=== PATIENT | female | born 1990 | race Caucasian/White ===

== ENCOUNTER 2017-06-28 15:32 | Emergency (ER) | payer SELFPAY ==
[~2017-06-28] VITALS: Ht 160 cm; Wt 58.0 kg
[~2017-06-28 15:32] MED LIST: BUPR-197 PO; BUPR100CR PO; IBUP600 PO; PERI8.6T PO; PREN0.01 PO
[2017-06-28 15:34] VITALS: BP 116/65; PULSE 63; RESP 16; TEMP 97.8; O2SAT 99
--- NOTE | 2017-06-28 16:25 | PD ---
HPI Chief Complaint: Injury Time Seen by Provider: 15:47 Travel History International Travel<30 days: No Contact w/Intl Traveler<30days: No Traveled to known affect area: No History of Present Illness HPI 26 old female here with right medial foot pain 1 week. She reports she injured the foot while doing front flips. She has had pain with weightbearing since. Denies paresthesia or weakness in the extremity. Symptom severity moderate. Aggravated by walking relieved with rest. PFSH Past Medical History Hx Anticoagulant Therapy: No ADHD: Yes Asthma: Yes Bipolar Disorder: Yes Weight (Kg): 3 Anxiety: No Depression: Yes Cancer: No Cardiovascular Problems: No Diabetes: No Diminished Hearing: No Endocrine: No Gastrointestinal Disorders: Yes Genitourinary: No Headaches: Yes Immune Disorder: No Implanted Vascular Access Dvce: No Musculoskeletal: No Neurologic: Yes Psychiatric: Yes (BIPOLAR AND ADHD) Reproductive: No Respiratory: Yes Immunizations Current: Yes Migraines: Yes (SEVERE HEADS APPROX ONCE EVERY TWO WEEKS) Seizures: No Thyroid Disease: No Ulcer: No Influenza Vaccination: Yes PNEUMOCCOCAL Vaccine (Year): 3 ?: Not LMP: about 1 mo ago Menopausal: No : 0 Past Surgical History Appendectomy: No Section: No Cholecystectomy: No Pacemaker: No Other Surgery: Yes Social History Alcohol Use: No Tobacco Use: Yes (1ppd) Substance Use: Yes (MARIJUANA) Allergies-Medications (Allergen,Severity, Reaction): Coded Allergies: No Known Allergies (Verified Adverse Reaction, Unknown, 06/28/17) Reported Meds & Prescriptions Reported Meds & Active Scripts Active Review of Systems Except as stated in HPI: all other systems reviewed are Neg Physical Exam Narrative GENERAL: Alert female with no distress SKIN: Warm and dry. HEAD: Normocephalic. EYES: No scleral icterus. No injection or drainage. NECK: Supple, trachea midline. MUSCULOSKELETAL: No cyanosis, or edema. Right foot: Tenderness over the medial aspect. No deformity. 2+ distal pulses. Brisk cap refill. Data Data Last Documented VS Vital Signs Date Time Temp Pulse Resp B/P (MAP) Pulse Ox O2 Delivery O2 Flow Rate FiO2 06/28/17 15:40 Room Air 06/28/17 15:34 97.8 63 16 116/65 (82) 99 Orders Orders Foot, Complete ([id number]) (06/28/17 ) [facility] Medical Decision Making Medical Screen Exam Complete: Yes Emergency Medical Condition: Yes Differential Diagnosis Sprain, contusion, fracture Narrative Course 26 -year-old female with right foot pain. Extremities neurovascular intact. X- rays negative for fracture. Patient be treated for midfoot sprain Diagnosis Primary Impression: Foot sprain Qualified Codes: S93.601A - Unspecified sprain of right foot, initial encounter Referrals: [facility] Additional Instructions: Ice and elevate the extremity. Take [id number] Tylenol or ibuprofen as needed for pain. Disposition: 01 DISCHARGE HOME Condition: Stable Sonya Cabrera Jun 28, 2017 16:25
--- NOTE | 2017-06-28 16:30 | RADRPT ---
EXAM DATE/TIME: 06/28/2017 16:00 [place] COMPARISON: No previous studies available for comparison. INDICATIONS : Left foot pain after doing flips MEDICAL HISTORY : None. SURGICAL HISTORY : None. ENCOUNTER: Initial ACUITY: 4 - 6 days PAIN SCORE: 8/10 LOCATION: Left foot FINDINGS: Three view examination of the left foot demonstrates no soft tissue swelling, dislocation, or fractur e. The tarsal bones appear intact. The interphalangeal and metatarsophalangeal joints are intact. The calcaneus is intact. Bony mineralization is normal. CONCLUSION: Unremarkable examination. Donnell Wynn MD on June 28, 2017 at 16:28 Board Certified Radiologist. This report was verified electronically.
== END 2017-06-28 16:58 | disposition home or self-care (01) ==
LOC: PHEFT 15:32
DX: M79.671 Pain in right foot (principal); J45.909 Unspecified asthma, uncomplicated; F12.90 Cannabis use, unspecified, uncomplicated; Z72.0 Tobacco use
CPT/HCPCS: 73630; 99283

== ENCOUNTER 2018-04-03 10:14 | Inpatient (IN) ==
[2018-04-03] MEDS ORDERED: Morphine Inj 4 MG/ML Vial IV.PUSH ONE ×2 (10:30→12:13)
[2018-04-03] MEDS ORDERED: Sod Chloride 0.9% Inj 1,000 ML IV.SIG ONE (10:33)
--- NOTE | 2018-04-03 10:44 | ED ---
HPI General Chief complaint: Extremity Injury, Lower Stated complaint: knee complaint Time Seen by Provider: 04/03/18 10:25 Source: patient, RN notes reviewed and old records reviewed Mode of arrival: wheelchair History of Present Illness HPI narrative: 27yF presenting with right knee infection. The patient states that a week and a half ago she had a "staph infection on my right thigh" which she drained herself and did not receive antibiotics; approximately 6 days ago, she began to have swelling, redness, and pain to her right knee. She was seen in the ED at [facility], where she had an arthrocentesis performed and was told that she had a septic knee. She was given a dose of IV antibiotics but did not wish to stay in the hospital, so she signed out against medical advice. She was not seen by or followed up with an orthopedist. She reports that the pain was initially better, but yesterday became significantly worse, her knee is now more swollen, and she is unable to flex or extend the joint. Denies fever but admits to chills, denies hip or ankle pain, denies trauma, puncture wounds to skin, or IVDA. Related Data Home Medications Medication Instructions Recorded Confirmed No Known Home Medications 04/03/18 04/03/18 Allergies Allergy/AdvReac Type Severity Reaction Status Date / Time No Known Allergies Allergy Verified 04/03/18 11:15 Review of Systems ROS: all other systems reviewed are negative PMFSH History History Provided By: Patient Medical History Medical History Patient denies medical problems (Acute) Surgical History Surgical History History of facial surgery (Acute) Social History Social History Substance History: No History of Abuse Second Hand Smoke Exposure: Yes Smoking Status: Heavy tobacco smoker Tobacco Type: Cigarettes How Often Do You Have a Drink Containing Alcohol: Never Recent Travel in [facility] within the Last 8 Weeks: No Recent Out of Country Travel within the Last 8 Weeks: No Exam Const Other: Tearful, moderate painful distress [place] Head: normocephalic and atraumatic Eyes General: appearance normal, both eyes and all related structures Pupils: PERRL Chest Chest: normal inspection of the chest Resp Effort & Inspection: normal respiratory effort Auscultation: no rhonchi and no wheezes Cardio Rate: tachycardic Rhythm: regular rhythm GI Inspection: non-distended Palpation: soft and nontender Neuro General: alert, awake, oriented x3 and no focal motor deficits Extrem Other: Right knee is moderately swollen, erythematous, warm, tender to any touch No lymphangitic streaking Unable to actively or passively flex/ extend knee Psych Affect: normal affect Procedures Joint Aspiration/Injection Joint Asp./Inject. 1: Time Out Performed: Yes Side of Body: right Joint Aspirated: knee Ultrasound Guidance: No Skin Prep: sterile prep and drape Local Anesthesia Used: bupivacaine 0.5% Amount of anesthesia used (mL): 10 Needle Size Used: 18G Fluid Obtained: purulent Total fluid obtained (mL): 60 Patient Tolerated Procedure: well and no complications Course Consultations Consultation #1: Case discussed with ortho PA working w Dr. Cohen; agrees with IV antibiotics and recommends keeping the patient NPO after midnight for planned OR washout in AM. Time: 14:42 Initial Documented Vital Signs Temperature 98.7 F 04/03/18 10:16 Pulse Rate 113 H 04/03/18 10:16 Respiratory Rate 18 04/03/18 10:16 Blood Pressure 120/66 04/03/18 10:16 Pulse Oximetry 99 04/03/18 10:16 Last Documented Vital Signs Temperature 100.4 F H 04/03/18 14:25 Pulse Rate 82 04/03/18 14:25 Respiratory Rate 20 04/03/18 14:25 Blood Pressure 104/58 L 04/03/18 14:25 Pulse Oximetry 97 04/03/18 14:25 Medical Decision Making [facility] Narrative Medical decision making narrative: Assessment: 27yF resenting with right knee infection, likely septic joint Plan: Pain control, IV fluids Labs, including blood cultures, lactate, ESR/ CRP X-ray right knee [facility] contacted to fax over previous records/ micro reports Will d/w orthopedics Addendum: This patient cannot go home as she has a septic right knee. She will need IV antibiotics and operative wash-out. Case discussed with Dr. Cody of [facility]. Medical Screen Exam Complete: Yes Emergency Medical Condition: Yes Differential Diagnosis Differential Diagnosis: Differential diagnosis includes, but is not limited to: septic arthritis, abscess, bursitis, hemarthrosis, fracture Medical Records Medical records reviewed: Yes I reviewed the patient's medical records. Records from [facility] show that the patient's synovial analysis was: Cloudy Yellow No crystals seen WBCs 437/mm3 Polys 92.7% Monos 7.3% RBCs <1000/mm3 No micro reports were sent Sed rate 87 mm/hr CRP 64.6 mg/L Urine drug screen positive for amphetamines, benzodiazepines, cocaine, opiates, and cannabinoids The patient was given a 1 time dose of 2 gm cefepime IV, no PO antibiotics Lab Data Lab results reviewed: Yes I reviewed the patient's lab results. Result diagrams: 04/03/18 11:05 04/03/18 11:05 POC Results POC Urine Results Negative Lab Results 04/03/18 04/03/18 04/03/18 Range/Units 11:05 11:05 11:05 WBC 9.2 (4.0-11.0) th/mm3 RBC 4.12 (4.00-5.30) mil/mm3 Hgb 11.7 (11.6-15.3) gm/dL Hct 35.6 (35.0-46.0) % MCV 86.2 (80.0-100.0) fL MCH 28.4 (27.0-34.0) pg MCHC 33.0 (32.0-36.0) % RDW 14.4 (11.6-17.2) % Plt Count 275 (150-450) th/mm3 MPV 7.4 (7.0-11.0) fL Neut % (Auto) 68.6 (16.0-70.0) % Lymph % (Auto) 19.5 (9.0-44.0) % [place] % (Auto) 11.2 H (0.0-8.0) % Eos % (Auto) 0.4 (0.0-4.0) % Baso % (Auto) 0.3 (0.0-2.0) % Neut # (Auto) 6.3 (1.8-7.7) th/mm3 Lymph # (Auto) 1.8 (1.0-4.8) th/mm3 [place] # (Auto) 1.0 H (0.0-0.9) th/mm3 Eos # (Auto) 0.0 (0.0-0.4) th/mm3 Baso # (Auto) 0.0 (0.0-0.2) th/mm3 WBC Differential . Differential Comment Auto diff final ESR 66 H (0-20) mm/hr Sodium 137 (136-145) meq/L Potassium 4.3 (3.5-5.1) meq/L Chloride 102 (98-107) meq/L Carbon Dioxide 26.6 (21.0-32.0) meq/L Anion Gap 8 (5-15) meq/L BUN 14 (7-18) mg/dL Creatinine 0.62 (0.50-1.00) mg/dL Estimated GFR Greater than 89 (>89) mL/min Random Glucose 99 (74-106) mg/dL Lactic Acid (0.4-2.0) mmol/L Calcium 8.9 (8.5-10.1) mg/dL C-Reactive Protein 18.50 H (0.00-0.30) mg/dL 04/03/18 Range/Units 11:15 WBC (4.0-11.0) th/mm3 RBC (4.00-5.30) mil/mm3 Hgb (11.6-15.3) gm/dL Hct (35.0-46.0) % MCV (80.0-100.0) fL MCH (27.0-34.0) pg MCHC (32.0-36.0) % RDW (11.6-17.2) % Plt Count (150-450) th/mm3 MPV (7.0-11.0) fL Neut % (Auto) (16.0-70.0) % Lymph % (Auto) (9.0-44.0) % [place] % (Auto) (0.0-8.0) % Eos % (Auto) (0.0-4.0) % Baso % (Auto) (0.0-2.0) % Neut # (Auto) (1.8-7.7) th/mm3 Lymph # (Auto) (1.0-4.8) th/mm3 [place] # (Auto) (0.0-0.9) th/mm3 Eos # (Auto) (0.0-0.4) th/mm3 Baso # (Auto) (0.0-0.2) th/mm3 WBC Differential Differential Comment ESR (0-20) mm/hr Sodium (136-145) meq/L Potassium (3.5-5.1) meq/L Chloride (98-107) meq/L Carbon Dioxide (21.0-32.0) meq/L Anion Gap (5-15) meq/L BUN (7-18) mg/dL Creatinine (0.50-1.00) mg/dL Estimated GFR (>89) mL/min Random Glucose (74-106) mg/dL Lactic Acid 1.3 (0.4-2.0) mmol/L Calcium (8.5-10.1) mg/dL C-Reactive Protein (0.00-0.30) mg/dL Imaging Data Radiologist's impression: Knee X-Ray 04/03/18 10:30 CONCLUSION: Knee joint effusion. Discharge Plan Discharge Disposition Patient Disposition: 30 Still Patient Discharge Condition Condition: Good Discharge Details Diagnosis: Septic arthritis of knee, right Physicians Team ED Provider: Kairne Dent Primary Care Provider: Primary Care CorkyiFelicia Rxs /Orders / Referrals /Forms Prescriptions: No Action No Known Home Medications RF: 0 Discharge Interventions Interventions: Vital Signs Last Done: 04/03/18 14:25 Status ED Status: With Doctor
--- NOTE | 2018-04-03 11:08 | XR ---
EXAM DATE: 04/03/2018 11:05 AM EDT AGE/SEX: 27 years / Female INDICATIONS: Swelling in right knee, right knee pain and swelling more medial. CLINICAL DATA: This is the patient's initial encounter. Patient reports that signs and symptoms have been present for 3 days and indicates a pain score of 10/10. MEDICAL/SURGICAL HISTORY: None. None. COMPARISON: No prior exams available for comparison. FINDINGS: No fracture or dislocation. Normal bone density. Large knee joint effusion. CONCLUSION: Knee joint effusion. Electronically signed by: Blaze Peguero MD 04/03/2018 11:06 AM EDT
[2018-04-03 11:33] LABS: Baso % (Auto) 0.3 % (0.0-2.0); Eos % (Auto) 0.4 % (0.0-4.0); Hematocrit 35.6 % (35.0-46.0); Hemoglobin 11.7 gm/dL (11.6-15.3); Lymph # (Auto) 1.8 th/mm3 (1.0-4.8); Lymph % (Auto) 19.5 % (9.0-44.0); Mean Corpuscular Hemoglobin 28.4 pg (27.0-34.0); Mean Corpuscular Volume 86.2 fL (80.0-100.0); Mean Platelet Volume 7.4 fL (7.0-11.0); Mono % (Auto) 11.2 % (0.0-8.0); Neut # (Auto) 6.3 th/mm3 (1.8-7.7); Neut % (Auto) 68.6 % (16.0-70.0); Platelet Count 275 th/mm3 (150-450); Red Blood Count 4.12 mil/mm3 (4.00-5.30); Red Cell Distribution Width 14.4 % (11.6-17.2); White Blood Count 9.2 th/mm3 (4.0-11.0)
[2018-04-03 11:45] LABS: Anion Gap 8 meq/L (5-15); Blood Urea Nitrogen 14 mg/dL (7-18); Calcium 8.9 mg/dL (8.5-10.1); Carbon Dioxide 26.6 meq/L (21.0-32.0); Chloride 102 meq/L (98-107); Glomerular Filtration Rate Greater Than 89 mL/min (>89); Glucose,Random 99 mg/dL (74-106); Potassium 4.3 meq/L (3.5-5.1); Sodium 137 meq/L (136-145)
[2018-04-03] MEDS ORDERED: Bupivacaine PF 0.5% Inj 10 ML Vial INFILTRATN ONE (11:59)
[2018-04-03] MEDS ORDERED: Bupivacaine 0.5% Inj 50 ML MDV Vial INFILTRATN ONE (12:30)
[2018-04-03] MEDS ORDERED: Vancomycin Inj 1 GM/200 ML PIGGYBACK IV.SIG ONE (13:37)
[2018-04-03] MEDS ORDERED: Vancomycin Inj 1,000 MG in Sodium Chlor 0.9% Inj 250 ML IV.SIG ONE (15:00)
[2018-04-03] MEDS ORDERED: Acetaminophen 325 MG Tablet PO ONE (15:06)
[2018-04-03] MEDS ORDERED: Acetaminophen 325 MG Tablet PO PRN (15:40)
[2018-04-03] MEDS ORDERED: Bisacodyl 10 MG Supp RECTAL PRN (15:40)
[2018-04-03] MEDS ORDERED: Vancomycin Consult Pharmacy OTHER PRN (15:43)
[2018-04-03] MEDS ORDERED: Naloxone Inj 0.4 MG/ML Vial IV.PUSH PRN (15:45)
--- NOTE | 2018-04-03 15:55 | P.HP ---
History of Present Illness Primary Care Physician: No Primary Care Physician History of Present Illness: 27-year-old female for past history of IVDU, presented to the ED for evaluation of right knee pain rated over 10 in intensity which is worse with activity. Patient report questionable staph infection on her right thigh about 10 days ago, which according to her she was able to drainage. However about a week ago she noticed significant swelling and redness of the right knee and went to a local emergency departments where patient had performed arthrocentesis and was given a diagnosis of septic knee for which she was treated with IV antibiotics. However, patient left AMA without any antibiotics and was advised to follow with outpatient orthopedic surgery. She was unable to do so, and the pain got worse with the knee significant swollen. Patient denies any trauma to her right knee or any insect bite. She denies any subjective fever. She has no chest pain or shortness of breath. . - Diagnosis (1) Sepsis (2) Septic arthritis of knee, right (3) Tobacco abuse (4) Polysubstance abuse Inpatient Certification: I certify that the inpatient services were ordered in accordance with Medicare regulations governing the order. This includes certification that hospital inpatient services are reasonable and necessary and in the case of services not specified as inpatient-only under 42 CFR 419.22(n), that they are appropriately provided as inpatient services in accordance to with the 2-midnight benchmark under 43 CFR 412.3(e) Estimated Total Length of Stay (Days): 2 Plans for Post Hospital Care: Not yet determined Review of Systems All other systems reviewed negative except as stated in HPI [facility] - History History Provided By: Patient - Medical History Medical History: Medical History (Last Updated 04/03/18 @ 11:12 by Elidia Ross) Patient denies medical problems - Surgical History Surgical History: Surgical History (Last Updated 04/03/18 @ 11:12 by Elidia Ross) History of facial surgery - Family History Family History: Family History (Last Updated 04/03/18 @ 15:50 by Jermaine Cody MD) Other Heart disease - Tobacco History Second Hand Smoke Exposure: Yes Tobacco Use In Past 30 Days: Yes Smoking Status: Heavy tobacco smoker Tobacco Type: Cigarettes - Alcohol History How Often Do You Have a Drink Containing Alcohol: Never - Substance Use History Substance History: No History of Abuse - Travel History Recent Travel in the [facility] Within the Last 8 Weeks: No Recent Travel Out of the Country Within the Last 8 Weeks: No - Immunization History Tetanus Immunization: Unsure Hx Influenza Vaccine This Season: No Medications and Allergies Active Medications: Active Medications Acetaminophen (Tylenol) 650 mg PO Q4H PRN PRN Reason: Temp > 100.4 Hydrocodone Bitart/Acetaminophen (Central 5/325) 1 tab PO Q4H PRN PRN Reason: PAIN SCALE 3 TO 5 Hydrocodone Bitart/Acetaminophen (Central 7.5/325) 1 tab PO Q4H PRN PRN Reason: PAIN SCALE 6 TO 10 Al Hydroxide/Mg Hydroxide (Milk Of Magnesia Liq) 30 ml PO Q12H PRN PRN Reason: Mild Constipation Bisacodyl (Dulcolax Supp) 10 mg RECTAL DAILY PRN PRN Reason: SEVERE CONSITIPATION Vancomycin HCl 1,000 mg/ (Sodium Chloride) 250 mls @ 250 mls/hr IV.SIG ONCE ONE Stop: 04/03/18 15:59 Last Admin: 04/03/18 15:38 Dose: 250 mls/hr Ceftriaxone Sodium 1,000 mg/ (Sodium Chloride) 100 mls @ 200 mls/hr IV.SIG Q24H STEFANIE Vancomycin HCl 1,250 mg/ (Sodium Chloride) 262.5 mls @ 250 mls/hr IV.SIG Q24H STEFANIE Lactobacillus Acidophilus (Lactinex) 1 tab PO BID [facility] Lactulose (Lactulose Liq) 30 ml PO DAILY PRN PRN Reason: SEVERE CONSITIPATION Morphine Sulfate (Morphine Inj) 2 mg IV.PUSH Q4H PRN PRN Reason: BREAKTHROUGH PAIN Naloxone HCl (Narcan Inj) 0.4 mg IV.PUSH UNSCH PRN PRN Reason: SEE LABEL COMMENTS Nicotine (Habitrol 21 Mg Patch.24 Hr) 1 patch T-DERMAL DAILY [facility] Ondansetron HCl (Zofran Inj) 4 mg IV.PUSH Q6H PRN PRN Reason: NAUSEA OR VOMITING Patch Removal (Remove Old Patch) 1 each T-DERMAL HS [facility] Pharmacy Profile Note (Vancomycin Consult Pharmacy) 1 each OTHER UNSCH PRN PRN Reason: Pharmacy to dose Senna/Docusate Sodium (Anabel-Colace) 1 tab PO BID [facility] Sennosides (Senokot) 17.2 mg PO Q12H PRN PRN Reason: Moderate Constipation Allergies Allergy/AdvReac Type Severity Reaction Status Date / Time No Known Allergies Allergy Verified 04/03/18 11:15 Home Medications Medication Instructions Recorded Confirmed Type No Known Home Medications 04/03/18 04/03/18 History Exam Vital signs: Vital Signs 04/03/18 10:16 04/03/18 11:11 04/03/18 12:17 Temperature 98.7 F Pulse Rate 113 H 93 H Respiratory Rate 18 16 Blood Pressure 120/66 116/73 Pulse Oximetry 99 99 04/03/18 14:09 04/03/18 14:25 Temperature 100.4 F H Pulse Rate 82 Respiratory Rate 16 20 Blood Pressure 104/58 L Pulse Oximetry 97 Intake & Output 04/02/18 04/03/18 04/03/18 18:59 06:59 18:59 Intake Total 1100 / 1100 Balance 1100 / 1100 Weight 54.431 kg Intake: IV 1100 / 1100 NS Inj 1,000 ML @ Wide Open IV. 1000 / 1000 SIG BOLUS ONE Rx#:[id number] Rocephin Inj 1,000 MG In NS Inj 100 / 100 100 ML @ 200 mls/hr IV.SIG ONCE ONE Rx#:[id number] Narrative: GENERAL: NAD SKIN: Warm and dry. HEAD: Atraumatic. Normocephalic. EYES: Pupils equal and round. No scleral icterus. No injection or drainage. ENT: No nasal bleeding or discharge. Mucous membranes pink and moist. NECK: Trachea midline. No JVD. CARDIOVASCULAR: Regular rate and rhythm. RESPIRATORY: No accessory muscle use. Clear to auscultation. Breath sounds equal bilaterally. GASTROINTESTINAL: Abdomen soft, non-tender, nondistended. Hepatic and splenic margins not palpable. MUSCULOSKELETAL: Extremities without clubbing, cyanosis, or edema. No obvious deformities. R knee TTP , swollen with limited range of motion NEUROLOGICAL: Awake and alert. No obvious cranial nerve deficits. Motor grossly within normal limits. Five out of 5 muscle strength in the arms and legs. Normal speech. PSYCHIATRIC: Appropriate mood and affect; insight and judgment normal. Results - Labs CBC & Chem 7: 04/03/18 11:05 04/03/18 11:05 Labs: Laboratory Results - last 24 hr 04/03/18 04/03/18 04/03/18 11:05 11:05 11:05 WBC 9.2 RBC 4.12 Hgb 11.7 Hct 35.6 MCV 86.2 MCH 28.4 MCHC 33.0 RDW 14.4 Plt Count 275 MPV 7.4 Neut % (Auto) 68.6 Lymph % (Auto) 19.5 [place] % (Auto) 11.2 H Eos % (Auto) 0.4 Baso % (Auto) 0.3 Neut # (Auto) 6.3 Lymph # (Auto) 1.8 [place] # (Auto) 1.0 H Eos # (Auto) 0.0 Baso # (Auto) 0.0 WBC Differential . Differential Comment Auto diff final ESR 66 H Sodium 137 Potassium 4.3 Chloride 102 Carbon Dioxide 26.6 Anion Gap 8 BUN 14 Creatinine 0.62 Estimated GFR Greater than 89 Random Glucose 99 Lactic Acid Calcium 8.9 C-Reactive Protein 18.50 H Synovial Crystals 04/03/18 04/03/18 11:15 14:20 WBC RBC Hgb Hct MCV MCH MCHC RDW Plt Count MPV Neut % (Auto) Lymph % (Auto) [place] % (Auto) Eos % (Auto) Baso % (Auto) Neut # (Auto) Lymph # (Auto) [place] # (Auto) Eos # (Auto) Baso # (Auto) WBC Differential Differential Comment ESR Sodium Potassium Chloride Carbon Dioxide Anion Gap BUN Creatinine Estimated GFR Random Glucose Lactic Acid 1.3 Calcium C-Reactive Protein Synovial Crystals None - Imaging Impressions Knee X-Ray 04/03/18 10:30 CONCLUSION: Knee joint effusion. Caprini VTE Risk Assessment Caprini VTE Risk Assessment: No/Low Risk (score <= 1) Caprini Risk Assessment Model: Point Value = 1 Point Value = 2 Point Value = 3 Point Value = 5 Age 41-60 Minor surgery BMI > 25 kg/m2 Swollen legs Varicose veins or History of unexplained or recurrent spontaneous Oral contraceptives or hormone replacement Sepsis (< 1 month) Serious lung disease, including pneumonia (< 1 month) Abnormal pulmonary function Acute myocardial infarction Congestive heart failure (< 1 month) History of inflammatory bowel disease Medical patient at bed rest Age 61-74 Arthroscopic surgery Major open surgery (> 45 min) Laparoscopic surgery (> 45 min) Malignancy Confined to bed (> 72 hours) Immobilizing plaster cast Central venous access Age >= 75 History of VTE Family history of VTE Factor V Leiden Prothrombin [id number] Lupus anticoagulant Anticardiolipin antibodies Elevated serum homocysteine Heparin-induced thrombocytopenia Other congenital or acquired thrombophilia Stroke (< 1 month) Elective arthroplasty Hip, pelvis, or leg fracture Acute spinal cord injury (< 1 month) Prophylaxis Regimen: Total Risk Factor Score Risk Level Prophylaxis Regimen 0-1 Low Early ambulation 2 Moderate Order ONE of the following: *Sequential Compression Device (SCD) *Heparin 5000 units SQ BID 3-4 Higher Order ONE of the following medications: *Heparin 5000 units SQ TID *Enoxaparin/Lovenox 40 mg SQ daily (WT < 150 kg, CrCl > 30 mL/min) *Enoxaparin/Lovenox 30 mg SQ daily (WT < 150 kg, CrCl > 10-29 mL/min) *Enoxaparin/Lovenox 30 mg SQ BID (WT < 150 kg, CrCl > 30 mL/min) AND/OR *Sequential Compression Device (SCD) 5 or more Highest Order ONE of the following medications: *Heparin 5000 units SQ TID (Preferred with Epidurals) *Enoxaparin/Lovenox 40 mg SQ daily (WT < 150 kg, CrCl > 30 mL/min) *Enoxaparin/Lovenox 30 mg SQ daily (WT < 150 kg, CrCl > 10-29 mL/min) *Enoxaparin/Lovenox 30 mg SQ BID (WT < 150 kg, CrCl > 30 mL/min) AND *Sequential Compression Device (SCD) Assessment and Plan - Assessment (1) Sepsis Code(s): A41.9 - Sepsis, unspecified organism Status: Acute (2) Septic arthritis of knee, right Code(s): M00.9 - Pyogenic arthritis, unspecified Status: Acute (3) Tobacco abuse Code(s): Z72.0 - Tobacco use Status: Acute (4) Polysubstance abuse Code(s): F19.10 - Other psychoactive substance abuse, uncomplicated Status: Acute - Plan 27-year-old female with Sepsis: Tachycardia with febrile episode, source right knee septic joint Septic right knee joint Elevated ESR and CRP X-ray noted in review with finding of Knee joint effusion Orthopedic surgery consultation pending for evaluation for incision and drainage Status post vancomycin and Rocephin IV 1 in ED, continue with antibiotics and monitor cultures Pain management accordingly, IV fluid, and n.p.o. after midnight Tobacco abuse Tobacco counseling cessation provided Start nicotine patch Polysubstance abuse, history of IV drug use however currently denies Extensively counseled against Requesting hepatitis profile check, declined HIV testing Consider 2D echo to rule out endocarditis Check UDS
[2018-04-03 16:02] LABS: Appearance,Synovial Fluid Moderate (Clear); Color,Synovial Fluid Yellow (Straw)
[2018-04-03 16:03] LABS: Lymphocytes,Synovial Fluid 11 %; Neutrophils,Synovial Fluid 82 % (0-25)
[2018-04-03 17:35] LABS: Bilirubin,Urine Negative (Negative); Clarity,Urine Cloudy (Clear); Color,Urine Yellow (Yellw/Straw); Glucose,Urine (UA) Negative (Negative); Leukocyte Esterase,Urine Small (Negative); Mucus,Urine Few /lpf (Occasional); Nitrite,Urine Negative (Negative); Specific Gravity,Urine 1.017 (1.002-1.035); Squamous Epithelial Cell,Urine 10 /hpf (0-5)
[2018-04-03 17:37] LABS: Amphetamine Screen,Urine Neg (Neg); Barbiturate Screen,Urine Neg (Neg); Cannabinoid Screen,Urine Pos (Neg); Cocaine Screen,Urine Neg (Neg)
[2018-04-03 17:41] LABS: Opiate Screen,Urine Pos (Neg)
[2018-04-03] MEDS: Morphine Inj 4 MG/ML Vial IV.PUSH PRN ×2 (19:28→23:41)
[2018-04-03] MEDS: Lactobacillus Acidophilus/L. Spores Tablet PO SCH (20:48)
[2018-04-03] MEDS: Senna/Docusate Sodium 8.6/50 MG Tablet PO SCH (20:48)
[2018-04-03] MEDS ORDERED: oxyCODONE/Acetaminophen 10/325 Tablet PO ONE (21:24)
[2018-04-04] MEDS ORDERED: Vancomycin Inj 1,250 MG in Sodium Chlor 0.9% Inj 250 ML IV.SIG SCH (03:00)
[2018-04-04] MEDS: Morphine Inj 4 MG/ML Vial IV.PUSH PRN ×3 (04:01→20:56)
[2018-04-04 05:55] LABS: Baso % (Auto) 0.1 % (0.0-2.0); Eos % (Auto) 0.1 % (0.0-4.0); Hematocrit 34.2 % (35.0-46.0); Hemoglobin 11.5 gm/dL (11.6-15.3); Lymph # (Auto) 1.6 th/mm3 (1.0-4.8); Mean Corpuscular HGB Conc 33.6 % (32.0-36.0); Mean Corpuscular Hemoglobin 28.3 pg (27.0-34.0); Mean Corpuscular Volume 84.2 fL (80.0-100.0); Mean Platelet Volume 7.9 fL (7.0-11.0); Mono # (Auto) 1.1 th/mm3 (0.0-0.9); Mono % (Auto) 7.1 % (0.0-8.0); Neut # (Auto) 13.1 th/mm3 (1.8-7.7); Neut % (Auto) 82.7 % (16.0-70.0); Platelet Count 325 th/mm3 (150-450); Red Blood Count 4.06 mil/mm3 (4.00-5.30); Red Cell Distribution Width 14.4 % (11.6-17.2); White Blood Count 15.9 th/mm3 (4.0-11.0)
[2018-04-04 06:26] LABS: Albumin 2.6 g/dL (3.4-5.0); Anion Gap 9 meq/L (5-15); Aspartate Aminotransferase 10 U/L (15-37); Blood Urea Nitrogen 8 mg/dL (7-18); Calcium 8.5 mg/dL (8.5-10.1); Carbon Dioxide 26.2 meq/L (21.0-32.0); Chloride 102 meq/L (98-107); Glomerular Filtration Rate Greater Than 89 mL/min (>89); Glucose,Random 148 mg/dL (74-106); Potassium 3.9 meq/L (3.5-5.1); Sodium 137 meq/L (136-145)
[2018-04-04 06:28] LABS: Alanine Aminotransferase 12 U/L (10-53); Alkaline Phosphatase 78 U/L (45-117); Total Protein 7.6 g/dL (6.4-8.2)
[2018-04-04] MEDS: Lactobacillus Acidophilus/L. Spores Tablet PO SCH ×2 (08:06→20:00)
[2018-04-04] MEDS: Senna/Docusate Sodium 8.6/50 MG Tablet PO SCH ×2 (08:07→20:00)
[2018-04-04] MEDS ORDERED: Ketorolac Inj 30 MG/ML (IVP) Vial IV.PUSH ONE (08:15)
[2018-04-04] MEDS ORDERED: Lidocaine PF 1% Inj 5 ML Syringe INFILTRATN ONE (08:15)
[2018-04-04] MEDS ORDERED: Ketamine Inj 50 MG/5 ML Syringe IV.PUSH ONE (08:37)
[2018-04-04] MEDS ORDERED: HYDROmorphone PF Inj 2 MG/ML Vial ONE ×2 (08:37→09:26)
--- NOTE | 2018-04-04 08:38 | P.CONOP ---
[facility] Orthopedics Consult Note - [facility] Consult date: 04/04/18 Chief complaint: septic right knee Narrative: Narcisa is a 27-year-old female who has a history of IV drug abuse. She has had approximately 1 week history of right knee pain. Her pain is been severe. She initially presented to [facility] approximately 5 days ago. Aspiration of knee was performed. Aspiration fluid was subsequently positive for infection. Patient left the hospital AGAINST MEDICAL ADVICE without treatment of IV antibiotics. She presented back to emergency room complaining of right knee pain. She is currently awake alert. Only complaint is right knee. Pain is worse with movement and is improved with rest. Pain is severe and intense with motion. She has difficulty ambulating. She has been using a cane to help ambulate. Review of Systems Patient denies weight loss, headache, visual changes, hearing loss, chest pain, palpitations, shortness of breath, nausea, vomiting, no urinary changes, diarrhea, bowel changes, neck pain, back pain, skin rashes, weakness of extremities, easy bleeding, enlarged lymph nodes, numbness of extremities, anxiety, or depression. She complains of right knee pain. She has had subjective fevers and chills. Patient's social history, past medical history, and family history were reviewed on chart and with patient. [facility] - History History Provided By: Patient - Medical History Medical History: Medical History (Last Reviewed 04/04/18 @ 08:35 by Jose Rome MD) Patient denies medical problems - Surgical History Surgical History: Surgical History (Last Reviewed 04/04/18 @ 08:35 by Jose Rome MD) History of facial surgery - Family History Family History: Family History (Last Reviewed 04/04/18 @ 08:35 by Jose Rome MD) Other Heart disease - Social History I have reviewed the patient's Social History: Yes - Tobacco History Second Hand Smoke Exposure: Yes Tobacco Use In Past 30 Days: Yes Smoking Status: Heavy tobacco smoker Tobacco Type: Cigarettes - Alcohol History How Often Do You Have a Drink Containing Alcohol: Never - Substance Use History Substance History: Past History - Substance Use Type Heroin Status: Early Remission Route Used: Intravenously Frequency: COUPLE HOURS EVERY DAY Reason for Use: Get High Comment: "BECAME A HABIT STARTED OUT JUST FOR FUN" - Travel History Recent Travel in the [facility] Within the Last 8 Weeks: No Recent Travel Out of the Country Within the Last 8 Weeks: No - Immunization History Tetanus Immunization: Unsure Hx Influenza Vaccine This Season: No Medications and Allergies Active Medications: Active Medications Acetaminophen (Tylenol) 650 mg PO Q4H PRN PRN Reason: Temp > 100.4 Hydrocodone Bitart/Acetaminophen ([place] 5/325) 1 tab PO Q4H PRN PRN Reason: PAIN SCALE 3 TO 5 Hydrocodone Bitart/Acetaminophen ([place] 7.5/325) 1 tab PO Q4H PRN PRN Reason: PAIN SCALE 6 TO 10 Last Admin: 04/04/18 06:40 Dose: 1 tab Al Hydroxide/Mg Hydroxide (Milk Of Magnesia Liq) 30 ml PO Q12H PRN PRN Reason: Mild Constipation Bisacodyl (Dulcolax Supp) 10 mg RECTAL DAILY PRN PRN Reason: SEVERE CONSITIPATION Ceftriaxone Sodium 1,000 mg/ (Sodium Chloride) 100 mls @ 200 mls/hr IV.SIG Q24H STEFANIE Vancomycin HCl 1,250 mg/ (Sodium Chloride) 262.5 mls @ 250 mls/hr IV.SIG Q12H STEFANIE Last Infusion: 04/04/18 03:46 Dose: Infused Lactobacillus Acidophilus (Lactinex) 1 tab PO BID [facility] Last Admin: 04/04/18 08:06 Dose: Not Given Lactulose (Lactulose Liq) 30 ml PO DAILY PRN PRN Reason: SEVERE CONSITIPATION Miscellaneous Information ([facility] Ordered Lab Info) 1 each OTHER ONCE ONE Stop: 04/05/18 02:46 Morphine Sulfate (Morphine Inj) 2 mg IV.PUSH Q4H PRN PRN Reason: BREAKTHROUGH PAIN Last Admin: 04/04/18 04:01 Dose: 2 mg Naloxone HCl (Narcan Inj) 0.4 mg IV.PUSH UNSCH PRN PRN Reason: SEE LABEL COMMENTS Nicotine (Habitrol 21 Mg Patch.24 Hr) 1 patch T-DERMAL DAILY [facility] Last Admin: 04/04/18 08:06 Dose: Not Given Ondansetron HCl (Zofran Inj) 4 mg IV.PUSH Q6H PRN PRN Reason: NAUSEA OR VOMITING Patch Removal (Remove Old Patch) 1 each T-DERMAL HS [facility] Last Admin: 04/03/18 20:49 Dose: Not Given Pharmacy Profile Note (Vancomycin Consult Pharmacy) 1 each OTHER UNSCH PRN PRN Reason: Pharmacy to dose Senna/Docusate Sodium (Anabel-Colace) 1 tab PO BID STEFANIE Last Admin: 04/04/18 08:07 Dose: Not Given Sennosides (Senokot) 17.2 mg PO Q12H PRN PRN Reason: Moderate Constipation Allergies Allergy/AdvReac Type Severity Reaction Status Date / Time No Known Allergies Allergy Verified 04/03/18 11:15 Home Medications Medication Instructions Recorded Confirmed Type No Known Home Medications 04/03/18 04/03/18 History Exam Vital signs: Vital Signs 04/03/18 10:16 04/03/18 11:11 04/03/18 12:17 Temperature 98.7 F Pulse Rate 113 H 93 H Respiratory Rate 18 16 Blood Pressure 120/66 116/73 Pulse Oximetry 99 99 04/03/18 14:09 04/03/18 14:25 04/03/18 16:00 Temperature 100.4 F H 98.4 F Pulse Rate 82 90 Respiratory Rate 16 20 18 Blood Pressure 104/58 L 119/68 Pulse Oximetry 97 99 04/03/18 19:30 04/03/18 20:00 04/03/18 22:04 Temperature 98.1 F Pulse Rate 70 Respiratory Rate 18 17 17 Blood Pressure 118/71 Pulse Oximetry 96 04/03/18 23:02 04/03/18 23:43 04/04/18 00:45 Temperature 98.5 F Pulse Rate 81 Respiratory Rate 17 17 17 Blood Pressure 123/68 Pulse Oximetry 96 04/04/18 03:13 04/04/18 04:05 Temperature Pulse Rate Respiratory Rate 17 17 Blood Pressure Pulse Oximetry Intake & Output 04/03/18 04/04/18 04/04/18 18:59 06:59 18:59 Intake Total 1350 / 1350 262.5 / 262.5 Output Total 500 / 500 Balance 850 / 850 262.5 / 262.5 Weight 54.431 kg 54 kg Intake: IV 1350 / 1350 262.5 / 262.5 NS Inj 1,000 ML @ Wide Open IV. 1000 / 1000 SIG BOLUS ONE Rx#:[id number] Vancomycin Inj 1,000 MG In NS 250 / 250 Inj 250 ML @ 250 mls/hr IV.SIG ONCE ONE Rx#:[id number] Vancomycin Inj 1,250 MG In NS 262.5 / 262.5 Inj 250 ML @ 250 mls/hr IV.SIG Q12H STEFANIE Rx#:[id number] Rocephin Inj 1,000 MG In NS Inj 100 / 100 100 ML @ 200 mls/hr IV.SIG ONCE ONE Rx#:[id number] Output: Urine 500 / 500 Other: # Voids 4 # Bowel Movements 0 Narrative: Samir 27-year-old female. General: Awake and alert. No acute distress. Appears well-developed well- nourished Head: Normocephalic, atraumatic pupils are equal Neck: Soft, nontender, trachea midline Abdomen: Soft, nondistended Examination of right arm reveals no pain or deformity with shoulder, elbow, or wrist motion. Skin is intact. Radial pulse is palpable. Normal capillary refill in fingers. Sensation is intact in radial, ulnar, and median nerve distributions. Painter Sign Maintenance strength is +5. No lymphadenopathy noted. Examination of left arm reveals no pain or deformity with shoulder, elbow, or wrist motion. Skin is intact. Radial pulse is palpable. Normal capillary refill in fingers. Sensation is intact in radial, ulnar, and median nerve distributions. Painter Sign Maintenance strength is +5. No lymphadenopathy noted. Examination of left lower extremity reveals no pain or deformity with hip, knee , or ankle motion. Skin is intact. Sensation is intact in left foot. Dorsalis pedis pulse is palpable. Normal capillary refill and feet. Thigh and calf compartments are soft. No lymphadenopathy noted. +5 strength of ankle dorsiflexion and plantarflexion. Examination of right lower extremity reveals no pain or deformity with hip or ankle motion. She has a right knee joint effusion. She keeps her knee approximately 30 of flexion. She has severe pain with any knee motion. Skin is intact. Sensation is intact in right foot. Dorsalis pedis pulse is palpable. Normal capillary refill and feet. Thigh and calf compartments are soft. No lymphadenopathy noted. +5 strength of ankle dorsiflexion and plantarflexion. Results - Labs Result Diagrams: 04/04/18 05:04 04/04/18 05:09 Labs: Laboratory Results - last 24 hr 04/03/18 04/03/18 04/03/18 11:05 11:05 11:05 WBC 9.2 RBC 4.12 Hgb 11.7 Hct 35.6 MCV 86.2 MCH 28.4 MCHC 33.0 RDW 14.4 Plt Count 275 MPV 7.4 Neut % (Auto) 68.6 Lymph % (Auto) 19.5 Buchanan % (Auto) 11.2 H Eos % (Auto) 0.4 Baso % (Auto) 0.3 Neut # (Auto) 6.3 Lymph # (Auto) 1.8 Buchanan # (Auto) 1.0 H Eos # (Auto) 0.0 Baso # (Auto) 0.0 WBC Differential . Differential Comment Auto diff final ESR 66 H Sodium 137 Potassium 4.3 Chloride 102 Carbon Dioxide 26.6 Anion Gap 8 BUN 14 Creatinine 0.62 Estimated GFR Greater than 89 Random Glucose 99 Lactic Acid Calcium 8.9 Total Bilirubin AST ALT Alkaline Phosphatase C-Reactive Protein 18.50 H Total Protein Albumin Urine Color Urine Clarity Urine pH Ur Specific Plover Urine Protein Urine Glucose (UA) Urine Ketones Urine Occult Blood Urine Nitrate Urine Bilirubin Urine Urobilinogen Ur Leukocyte Esterase Urine RBC Urine WBC Ur Squamous Epith Cells Urine Mucus Micro UA Comment Ur Microscopic Review Urine Culture Comments Synovial Color Synovial Appearance Synovial RBC Synovial Nuc Cells Synovial Neutrophils Synovial Lymphocytes Synovial Monocytes Synovial Crystals Synovial Fluid Comment Urine Opiates Screen Ur Barbiturates Screen Ur Amphetamines Screen U Benzodiazepines Scrn Urine Cocaine Screen U Cannabinoids Screen 04/03/18 04/03/18 04/03/18 11:15 14:20 14:20 WBC RBC Hgb Hct MCV MCH MCHC RDW Plt Count MPV Neut % (Auto) Lymph % (Auto) Buchanan % (Auto) Eos % (Auto) Baso % (Auto) Neut # (Auto) Lymph # (Auto) Buchanan # (Auto) Eos # (Auto) Baso # (Auto) WBC Differential Differential Comment ESR Sodium Potassium Chloride Carbon Dioxide Anion Gap BUN Creatinine Estimated GFR Random Glucose Lactic Acid 1.3 Calcium Total Bilirubin AST ALT Alkaline Phosphatase C-Reactive Protein Total Protein Albumin Urine Color Urine Clarity Urine pH Ur Specific Plover Urine Protein Urine Glucose (UA) Urine Ketones Urine Occult Blood Urine Nitrate Urine Bilirubin Urine Urobilinogen Ur Leukocyte Esterase Urine RBC Urine WBC Ur Squamous Epith Cells Urine Mucus Micro UA Comment Ur Microscopic Review Urine Culture Comments Synovial Color Yellow Synovial Appearance Moderate H Synovial RBC 1190 H Synovial Nuc Cells 54294 H Synovial Neutrophils 82 H Synovial Lymphocytes 11 Synovial Monocytes 7 Synovial Crystals None Synovial Fluid Comment Urine Opiates Screen Ur Barbiturates Screen Ur Amphetamines Screen U Benzodiazepines Scrn Urine Cocaine Screen U Cannabinoids Screen 04/03/18 04/03/18 04/04/18 16:45 16:45 05:04 WBC 15.9 H D RBC 4.06 Hgb 11.5 L Hct 34.2 L MCV 84.2 MCH 28.3 MCHC 33.6 RDW 14.4 Plt Count 325 MPV 7.9 Neut % (Auto) 82.7 H Lymph % (Auto) 10.0 Buchanan % (Auto) 7.1 Eos % (Auto) 0.1 Baso % (Auto) 0.1 Neut # (Auto) 13.1 H Lymph # (Auto) 1.6 Buchanan # (Auto) 1.1 H Eos # (Auto) 0.0 Baso # (Auto) 0.0 WBC Differential . Differential Comment Auto diff final ESR Sodium Potassium Chloride Carbon Dioxide Anion Gap BUN Creatinine Estimated GFR Random Glucose Lactic Acid Calcium Total Bilirubin AST ALT Alkaline Phosphatase C-Reactive Protein Total Protein Albumin Urine Color Yellow Urine Clarity Cloudy H Urine pH 6.0 Ur Specific Plover 1.017 Urine Protein Negative Urine Glucose (UA) Negative Urine Ketones Negative Urine Occult Blood Negative Urine Nitrate Negative Urine Bilirubin Negative Urine Urobilinogen Less than 2 Ur Leukocyte Esterase Small H Urine RBC 4 H Urine WBC 7 H Ur Squamous Epith Cells 10 Urine Mucus Few H Micro UA Comment Culture not ind Ur Microscopic Review Not Reportable Urine Culture Comments Culture not ind Synovial Color Synovial Appearance Synovial RBC Synovial Nuc Cells Synovial Neutrophils Synovial Lymphocytes Synovial Monocytes Synovial Crystals Synovial Fluid Comment Urine Opiates Screen Pos H Ur Barbiturates Screen Neg Ur Amphetamines Screen Neg U Benzodiazepines Scrn Neg Urine Cocaine Screen Neg U Cannabinoids Screen Pos H 04/04/18 05:09 WBC RBC Hgb Hct MCV MCH MCHC RDW Plt Count MPV Neut % (Auto) Lymph % (Auto) Buchanan % (Auto) Eos % (Auto) Baso % (Auto) Neut # (Auto) Lymph # (Auto) Buchanan # (Auto) Eos # (Auto) Baso # (Auto) WBC Differential Differential Comment ESR Sodium 137 Potassium 3.9 Chloride 102 Carbon Dioxide 26.2 Anion Gap 9 BUN 8 Creatinine 0.54 Estimated GFR Greater than 89 Random Glucose 148 H Lactic Acid Calcium 8.5 Total Bilirubin 0.4 AST 10 L ALT 12 Alkaline Phosphatase 78 C-Reactive Protein Total Protein 7.6 Albumin 2.6 L Urine Color Urine Clarity Urine pH Ur Specific Plover Urine Protein Urine Glucose (UA) Urine Ketones Urine Occult Blood Urine Nitrate Urine Bilirubin Urine Urobilinogen Ur Leukocyte Esterase Urine RBC Urine WBC Ur Squamous Epith Cells Urine Mucus Micro UA Comment Ur Microscopic Review Urine Culture Comments Synovial Color Synovial Appearance Synovial RBC Synovial Nuc Cells Synovial Neutrophils Synovial Lymphocytes Synovial Monocytes Synovial Crystals Synovial Fluid Comment Urine Opiates Screen Ur Barbiturates Screen Ur Amphetamines Screen U Benzodiazepines Scrn Urine Cocaine Screen U Cannabinoids Screen - Diagnostic results Imaging: Impressions Knee X-Ray 04/03/18 10:30 CONCLUSION: Knee joint effusion. Assessment and Plan - Assessment and Plan Narcisa likely has a septic right knee joint infection. Aspiration from [facility] was positive for staph. Treatment options were discussed. At this point I would recommend surgery for irrigation and debridement of right knee with arthrotomy. Risks of surgery include bleeding, infection, recurrent infection, as well as medical complications associated with anesthesia. All questions were answered. I will plan on surgery today. Patient will need to be on antibiotics for several weeks. I discussed with her the need to be compliant with her medication. I also discussed with her the need to stop using IV drugs to help prevent further infections. All questions were answered. I will plan on surgery today. A mid-level provider in my office (nurse practitioner or physician quality control assistant) may see this patient on follow-up visits and continue to implement the objectives of this plan including: Starting or adjusting medications, injections , cast application, orthotics, brace application, physical therapy, radiological studies (including x-ray, MRI, CT, ultrasound, bone scan), vascular studies, neurologic studies, specialist consultation, and proceeding with surgical management, as appropriate.
[2018-04-04] MEDS ORDERED: Post-op Orders (for Pharmacy) OTHER STA (08:53)
--- NOTE | 2018-04-04 09:00 | P.OP ---
- Preoperative Diagnosis (1) Septic arthritis of knee, right Date of procedure: 04/04/18 Procedure: Right knee arthrotomy with irrigation and debridement Anesthesia: GETA Surgeon: Jose Rome MD Field Service Manager: KARTHIK Purdy PA-C The surgical procedure was assisted by my physician assistant county engineer. My P.A. presence was necessary throughout this case for the manipulation and positioning of the surgical extremity. My P.A. was assisting me throughout the duration of this procedure. The skill set of a physician assistant county engineer was medically necessary to complete this procedure. During the surgical case the surgical training specialist was working at the back table and the physician assistant county engineer was directly assisting me. Pathology: other (Right knee synovial fluid) Operation and Findings: Patient was seen and evaluated preoperatively. Patient was found to have infection of the right knee joint. Knee effusion and erythema were noted. Informed consent was obtained after detailed discussion of risk and benefits of surgery. Operative site was marked. Patient was brought to the operating room. IV sedation and GETA were administered by anesthesiologist. Operative leg was prepped with alcohol followed by Hibiclens and draped in usual sterile fashion. Timeout procedure was performed. Procedure began with a 4 cm incision over the lateral knee. Subcutaneous tissue dissected with Bovie. Iliotibial band was opened in line with fibers. The joint was now opened through arthrotomy. A large volume of purulent fluid was found within the knee. Specimen was obtained for cultures and sensitivities. The knee joint was manipulated. The knee joint was palpated and loculations were manually debrided. A portion of the synovium was excised. After excisional debridement was complete, the wound was thoroughly irrigated with sterile saline. At this point the wound was clean. Capsule was closed with #1 PDS, Subcutaneous tissues closed with 3-0 PDS and skin was closed with 3 -0 nylon. A SHAAN drain was placed into the wound. Sterile dressings were applied. Patient was awakened and transferred to recovery in stable condition. Needle and sponge counts were correct
[2018-04-04] MEDS ORDERED: fentaNYL Citrate Inj 100 MCG/2 ML Ampul ONE (09:15)
[2018-04-04] MEDS: Vancomycin Inj 750 MG in Sodium Chlor 0.9% Inj 250 ML IV.SIG SCH ×2 (11:01→19:58)
[2018-04-05 00:43] VITALS: BP 126/62; PULSE 73; TEMP 98; O2SAT 98
[2018-04-05] MEDS: Morphine Inj 4 MG/ML Vial IV.PUSH PRN (03:16)
[2018-04-05] MEDS ORDERED: Pharmacy Ordered Lab Info OTHER ONE (03:45)
[2018-04-05] MEDS: Vancomycin Inj 750 MG in Sodium Chlor 0.9% Inj 250 ML IV.SIG SCH (03:49)
[2018-04-05 04:58] VITALS: RESP 17
== END 2018-04-05 06:21 | disposition left against medical advice (07) ==
LOC: NEPE 10:14 → NEDA 14:46 → INTOOBSV 14:46 → OBSVTOIN 14:46 → N07 16:20
PROVIDERS: ADMIT Internal Medicine; ATTEND Internal Medicine

== ENCOUNTER 2018-04-09 11:48 | Inpatient (IN) ==
--- NOTE | 2018-04-09 15:41 | ED ---
HPI General Chief complaint: Recheck/Abnormal Lab/Rx Stated complaint: medical clearance Time Seen by Provider: 04/09/18 15:14 Source: patient Mode of arrival: ambulatory Limitations: no limitations History of Present Illness HPI narrative: 27-year-old female presents to the emergency department for IV antibiotic therapy after she left AMA on Thursday after having right knee surgery for septic arthritis on Thursday. She denies history of IV drug use to me, but I read in her note that she has a current IV drug user. Denies fever, vomiting. Denies paresthesias, loss of sensation to her affected extremity. Says she cannot bend or completely extend her right knee. She has not been taking any oral antibiotics. Has been taking Tylenol and ibuprofen for her pain. Rates pain /. Constantly painful. Does not know who did her surgery. No primary care provider. No known allergies. Denies significant past medical history. Has no other medical complaints. No other modifying factors or associated signs and symptoms. Related Data Home Medications Medication Instructions Recorded Confirmed No Known Home Medications 04/03/18 04/09/18 Allergies Allergy/AdvReac Type Severity Reaction Status Date / Time No Known Allergies Allergy Verified 04/03/18 11:15 Review of Systems ROS: all other systems reviewed are negative PMFSH History History Provided By: Patient Medical History Medical History Patient denies medical problems (Acute) Septic arthritis of knee, right (Acute) Surgical History Surgical History History of facial surgery (Acute) History of knee surgery (Acute) Social History Social History Substance History: Past History Second Hand Smoke Exposure: No Smoking Status: Current every day smoker Tobacco Type: Cigarettes How Often Do You Have a Drink Containing Alcohol: Monthly or less Recent Travel in [facility] within the Last 8 Weeks: No Recent Out of Country Travel within the Last 8 Weeks: No Exam Narrative Exam Narrative: GENERAL: Well-nourished, well-developed female patient , in no acute distress; afebrile, nontoxic-appearing SKIN: Warm and dry. HEAD: Atraumatic. Normocephalic. EYES: Pupils equal and round. No scleral icterus. No injection or drainage. ENT: Mucosa pink and moist. Airway patent. NECK: Trachea midline. CARDIOVASCULAR: Regular rate. RESPIRATORY: No accessory muscle use. GASTROINTESTINAL: Flat. MUSCULOSKELETAL: right knee edematous; without erythema; in semi-flex position and unable to actively flex or extend the knee; severe pain elicited with attempting passive flexion. Right lower extremity is supple and non-tense with 2+ pedal pulse and sensory intact. No lymphangitis. [place] drain to right distal lateral thigh region draining a sanguinous drainage. No obvious deformities. No clubbing. No cyanosis. No edema. NEUROLOGICAL: Awake and alert. Oriented 3. No obvious cranial nerve deficits. Motor grossly within normal limits. Normal speech. PSYCHIATRIC: Appropriate mood and affect; insight and judgment normal. Course Initial Documented Vital Signs Temperature 97.9 F 04/09/18 11:53 Pulse Rate 87 04/09/18 11:53 Respiratory Rate 20 04/09/18 11:53 Blood Pressure 100/58 L 04/09/18 11:53 Pulse Oximetry 99 04/09/18 11:53 Last Documented Vital Signs Temperature 98.2 F 04/11/18 00:00 Pulse Rate 85 04/11/18 00:00 Respiratory Rate 18 04/11/18 00:00 Blood Pressure 99/55 L 04/11/18 00:00 Pulse Oximetry 96 04/11/18 00:00 Medical Decision Making MDM Narrative Medical decision making narrative: 27-year-old female with right knee septic arthritis and was April 04 and had surgery and then left AMA on April 05. History of IV drug use, per her chart, although the patient denies. She is afebrile and nontoxic-appearing. I reviewed medical records and medical biology grew out Staphylococcus aureus.. I called out to Dr. Vaughan, orthopedic surgeon, and he recommended for the patient to be admitted for IV antibiotics. CBC, CMP, coags, IV, IV fluid bolus, Toradol, vancomycin 1 g ordered. 183: CBC, CMP, coags unremarkable. I spoke with ROBLES Cason, and report was given for patient admission. Medical Screen Exam Complete: Yes Emergency Medical Condition: Yes Differential Diagnosis Differential Diagnosis: Right knee septic arthritis, medical clearance, IV drug abuse Lab Data Result diagrams: 04/10/18 03:44 04/10/18 03:44 Lab Results 04/09/18 04/09/18 04/09/18 Range/Units 17:00 17:00 17:00 WBC 8.4 (4.0-11.0) th/mm3 RBC 3.68 L (4.00-5.30) mil/mm3 Hgb 11.1 L (11.6-15.3) gm/dL Hct 31.1 L (35.0-46.0) % MCV 84.4 (80.0-100.0) fL MCH 30.3 (27.0-34.0) pg MCHC 35.9 (32.0-36.0) % RDW 14.3 (11.6-17.2) % Plt Count 414 (150-450) th/mm3 MPV 7.7 (7.0-11.0) fL Neut % (Auto) 52.5 (16.0-70.0) % Lymph % (Auto) 38.3 (9.0-44.0) % Churchill % (Auto) 6.8 (0.0-8.0) % Eos % (Auto) 1.3 (0.0-4.0) % Baso % (Auto) 1.1 (0.0-2.0) % Neut # (Auto) 4.4 (1.8-7.7) th/mm3 Lymph # (Auto) 3.2 (1.0-4.8) th/mm3 Churchill # (Auto) 0.6 (0.0-0.9) th/mm3 Eos # (Auto) 0.1 (0.0-0.4) th/mm3 Baso # (Auto) 0.1 (0.0-0.2) th/mm3 WBC Differential . Differential Comment Auto diff final PT 9.8 (9.8-11.6) sec INR 1.0 Ratio APTT 31.3 H (24.3-30.1) sec Sodium 138 (136-145) meq/L Potassium 4.1 (3.5-5.1) meq/L Chloride 102 (98-107) meq/L Carbon Dioxide 28.1 (21.0-32.0) meq/L Anion Gap 8 (5-15) meq/L BUN 18 (7-18) mg/dL Creatinine 0.61 (0.50-1.00) mg/dL Estimated GFR Greater than 89 (>89) mL/min Random Glucose 89 (74-106) mg/dL Hemoglobin A1c (4.3-6.0) % Calcium 8.8 (8.5-10.1) mg/dL Phosphorus (2.5-4.9) mg/dL Magnesium (1.5-2.5) mg/dL Total Bilirubin 0.2 (0.2-1.0) mg/dL AST 13 L (15-37) U/L ALT 24 (10-53) U/L Alkaline Phosphatase 88 (45-117) U/L Total Protein 7.9 (6.4-8.2) g/dL Albumin 2.8 L (3.4-5.0) g/dL TSH (0.358-3.740) uIU/mL Free T4 (0.76-1.46) ng/dL Hepatitis A IgM Ab (Nonreactive) Hep Bs Antigen (Nonreactive) Hep B Core IgM Ab (Nonreactive) Hep C IgG Ab (Nonreactive) 04/09/18 04/10/18 04/10/18 Range/Units 19:18 03:44 03:44 WBC 6.0 (4.0-11.0) th/mm3 RBC 3.34 L (4.00-5.30) mil/mm3 Hgb 9.3 L (11.6-15.3) gm/dL Hct 28.7 L (35.0-46.0) % MCV 86.2 (80.0-100.0) fL MCH 27.9 (27.0-34.0) pg MCHC 32.4 (32.0-36.0) % RDW 14.2 (11.6-17.2) % Plt Count 345 (150-450) th/mm3 MPV 7.2 (7.0-11.0) fL Neut % (Auto) 52.4 (16.0-70.0) % Lymph % (Auto) 38.2 (9.0-44.0) % Churchill % (Auto) 7.1 (0.0-8.0) % Eos % (Auto) 1.7 (0.0-4.0) % Baso % (Auto) 0.6 (0.0-2.0) % Neut # (Auto) 3.2 (1.8-7.7) th/mm3 Lymph # (Auto) 2.3 (1.0-4.8) th/mm3 Churchill # (Auto) 0.4 (0.0-0.9) th/mm3 Eos # (Auto) 0.1 (0.0-0.4) th/mm3 Baso # (Auto) 0.0 (0.0-0.2) th/mm3 WBC Differential . Differential Comment Auto diff final PT (9.8-11.6) sec INR Ratio APTT (24.3-30.1) sec Sodium (136-145) meq/L Potassium (3.5-5.1) meq/L Chloride (98-107) meq/L Carbon Dioxide (21.0-32.0) meq/L Anion Gap (5-15) meq/L BUN (7-18) mg/dL Creatinine (0.50-1.00) mg/dL Estimated GFR (>89) mL/min Random Glucose (74-106) mg/dL Hemoglobin A1c 6.2 H (4.3-6.0) % Calcium (8.5-10.1) mg/dL Phosphorus (2.5-4.9) mg/dL Magnesium (1.5-2.5) mg/dL Total Bilirubin (0.2-1.0) mg/dL AST (15-37) U/L ALT (10-53) U/L Alkaline Phosphatase (45-117) U/L Total Protein (6.4-8.2) g/dL Albumin (3.4-5.0) g/dL TSH (0.358-3.740) uIU/mL Free T4 (0.76-1.46) ng/dL Hepatitis A IgM Ab Nonreactive (Nonreactive) Hep Bs Antigen Nonreactive (Nonreactive) Hep B Core IgM Ab Nonreactive (Nonreactive) Hep C IgG Ab Reactive H (Nonreactive) 04/10/18 Range/Units 03:44 WBC (4.0-11.0) th/mm3 RBC (4.00-5.30) mil/mm3 Hgb (11.6-15.3) gm/dL Hct (35.0-46.0) % MCV (80.0-100.0) fL MCH (27.0-34.0) pg MCHC (32.0-36.0) % RDW (11.6-17.2) % Plt Count (150-450) th/mm3 MPV (7.0-11.0) fL Neut % (Auto) (16.0-70.0) % Lymph % (Auto) (9.0-44.0) % Churchill % (Auto) (0.0-8.0) % Eos % (Auto) (0.0-4.0) % Baso % (Auto) (0.0-2.0) % Neut # (Auto) (1.8-7.7) th/mm3 Lymph # (Auto) (1.0-4.8) th/mm3 [place] # (Auto) (0.0-0.9) th/mm3 Eos # (Auto) (0.0-0.4) th/mm3 Baso # (Auto) (0.0-0.2) th/mm3 WBC Differential Differential Comment PT (9.8-11.6) sec INR Ratio APTT (24.3-30.1) sec Sodium 143 (136-145) meq/L Potassium 4.4 (3.5-5.1) meq/L Chloride 108 H (98-107) meq/L Carbon Dioxide 24.8 (21.0-32.0) meq/L Anion Gap 10 (5-15) meq/L BUN 15 (7-18) mg/dL Creatinine 0.56 (0.50-1.00) mg/dL Estimated GFR Greater than 89 (>89) mL/min Random Glucose 98 (74-106) mg/dL Hemoglobin A1c (4.3-6.0) % Calcium 8.0 L D (8.5-10.1) mg/dL Phosphorus 3.3 (2.5-4.9) mg/dL Magnesium 2.0 (1.5-2.5) mg/dL Total Bilirubin 0.2 (0.2-1.0) mg/dL AST 8 L (15-37) U/L ALT 18 (10-53) U/L Alkaline Phosphatase 69 (45-117) U/L Total Protein 6.1 L D (6.4-8.2) g/dL Albumin 2.1 L D (3.4-5.0) g/dL TSH 0.555 (0.358-3.740) uIU/mL Free T4 1.30 (0.76-1.46) ng/dL Hepatitis A IgM Ab (Nonreactive) Hep Bs Antigen (Nonreactive) Hep B Core IgM Ab (Nonreactive) Hep C IgG Ab (Nonreactive) Discharge Plan Discharge Disposition Patient Disposition: 30 Still Patient Discharge Condition Condition: Stable Discharge Details Diagnosis: Septic arthritis of knee, right Physicians Team ED Provider: Inderjit Garrido ED Midlevel Provider: Payton Hogue Primary Care Provider: Primary Care Felicia Hansen Attending Provider: Lisa Chacko Other Providers: Joe Vaughan Eloisa Status ED Status: Left Department Discharge Information Discharge Date/Time: 04/09/18 21:01
[2018-04-09] MEDS ORDERED: Ketorolac Inj 30 MG/ML (IVP) Vial IV.PUSH ONE (15:57)
[2018-04-09] MEDS ORDERED: Vancomycin Inj 1 GM/200 ML PIGGYBACK IV.SIG SCH (16:00)
[2018-04-09] MEDS ORDERED: Sod Chloride 0.9% Inj 1,000 ML IV.SIG SCH (16:00)
[2018-04-09] MEDS ORDERED: Vancomycin Inj 1,000 MG in Sodium Chlor 0.9% Inj 250 ML IV.SIG ONE ×2 (16:30→20:00)
[2018-04-09 17:45] LABS: Baso # (Auto) 0.1 th/mm3 (0.0-0.2); Baso % (Auto) 1.1 % (0.0-2.0); Eos # (Auto) 0.1 th/mm3 (0.0-0.4); Eos % (Auto) 1.3 % (0.0-4.0); Hematocrit 31.1 % (35.0-46.0); Hemoglobin 11.1 gm/dL (11.6-15.3); Lymph # (Auto) 3.2 th/mm3 (1.0-4.8); Lymph % (Auto) 38.3 % (9.0-44.0); Mean Corpuscular HGB Conc 35.9 % (32.0-36.0); Mean Corpuscular Hemoglobin 30.3 pg (27.0-34.0); Mean Corpuscular Volume 84.4 fL (80.0-100.0); Mean Platelet Volume 7.7 fL (7.0-11.0); Mono # (Auto) 0.6 th/mm3 (0.0-0.9); Mono % (Auto) 6.8 % (0.0-8.0); Neut # (Auto) 4.4 th/mm3 (1.8-7.7); Neut % (Auto) 52.5 % (16.0-70.0); Platelet Count 414 th/mm3 (150-450); Red Blood Count 3.68 mil/mm3 (4.00-5.30); Red Cell Distribution Width 14.3 % (11.6-17.2); White Blood Count 8.4 th/mm3 (4.0-11.0)
[2018-04-09 17:55] LABS: Activated Partial Thrombo Time 31.3 sec (24.3-30.1); Prothrombin Time 9.8 sec (9.8-11.6)
[2018-04-09 18:29] LABS: Albumin 2.8 g/dL (3.4-5.0); Anion Gap 8 meq/L (5-15); Aspartate Aminotransferase 13 U/L (15-37); Blood Urea Nitrogen 18 mg/dL (7-18); Calcium 8.8 mg/dL (8.5-10.1); Carbon Dioxide 28.1 meq/L (21.0-32.0); Chloride 102 meq/L (98-107); Glomerular Filtration Rate Greater Than 89 mL/min (>89); Glucose,Random 89 mg/dL (74-106); Potassium 4.1 meq/L (3.5-5.1); Sodium 138 meq/L (136-145)
[2018-04-09 18:32] LABS: Alanine Aminotransferase 24 U/L (10-53); Alkaline Phosphatase 88 U/L (45-117); Total Protein 7.9 g/dL (6.4-8.2)
[2018-04-09] MEDS ORDERED: Bisacodyl 10 MG Supp RECTAL PRN (18:39)
[2018-04-09] MEDS ORDERED: LORazepam 1 MG Tablet PO PRN (18:41)
[2018-04-09] MEDS ORDERED: Naloxone Inj 0.4 MG/ML Vial IV.PUSH PRN (18:42)
[2018-04-09] MEDS ORDERED: Morphine Inj 4 MG/ML Vial IV.PUSH PRN ×2 (18:42)
[2018-04-09] MEDS ORDERED: Morphine Sulfate Inj 2 MG/ML Vial IV.PUSH PRN (18:42)
[2018-04-09] MEDS ORDERED: Vancomycin Consult Pharmacy 1 EACH OTHER SCH (18:45)
[2018-04-09] MEDS: Sod Chloride 0.9% Inj 1,000 ML IV.CONT SCH (19:17)
[2018-04-09] MEDS: Piperacil/Tazo 3.375 GM Premix 50 ML IV.SIG SCH ×2 (19:21→19:54)
--- NOTE | 2018-04-09 19:24 | P.HPIM ---
History of Present Illness Primary Care Physician: No Primary Care Physician History of Present Illness: This is a 27-year-old female with a PMH of IVDU, Tobacco Abuse and Right Knee Septic Arthritis who presented to ER for readmission. Recent admit 04/03/18 for right knee pain, found to have right knee septic arthritis, s/p Right Knee Arthrotomy w/ I&D by Dr. Cohen on 04/04/18, was on Vanc/Zosyn and LEFT AMA on , returns now for re-admission and ongoing knee pain. Pain is constant, 10 /10, worse w/ movement. On arrival, BP 100/58, HR 87, O2 sat 99% on RA, Afebrile. CBC essentially unremarkable. INR 1.0. Chemistry unremarkable. Hepatitis Panel pending. S/p Vanc in ER. Ortho consulted for further eval. - Diagnosis (1) IVDU (intravenous drug user) (2) Septic arthritis of knee, right (3) Tobacco abuse Inpatient Certification: I certify that the inpatient services were ordered in accordance with Medicare regulations governing the order. This includes certification that hospital inpatient services are reasonable and necessary and in the case of services not specified as inpatient-only under 42 CFR 419.22(n), that they are appropriately provided as inpatient services in accordance to with the 2-midnight benchmark under 43 CFR 412.3(e) Estimated Total Length of Stay (Days): 5 Plans for Post Hospital Care: Not yet determined Review of Systems PAST FAMILY HISTORY: Reviewed. No h/o DM or CAD All other systems reviewed negative except as [facility] - History History Provided By: Patient - Medical History Medical History: Medical History (Last Reviewed 04/09/18 @ 18:38 by JENY Durham) Patient denies medical problems (Acute) - Surgical History Surgical History: Surgical History (Last Updated 04/09/18 @ 17:02 by Elidia Ross) History of facial surgery (Acute) - Family History Family History: Family History (Last Reviewed 04/04/18 @ 16:12 by Taylor Hartmann PT) Other Heart disease - Tobacco History Second Hand Smoke Exposure: Yes Tobacco Use In Past 30 Days: Yes Smoking Status: Heavy tobacco smoker Tobacco Type: Cigarettes - Alcohol History How Often Do You Have a Drink Containing Alcohol: Never - Substance Use History Substance History: No History of Abuse - Travel History Recent Travel in the [place] Within the Last 8 Weeks: No Recent Travel Out of the Country Within the Last 8 Weeks: No - Immunization History Tetanus Immunization: >5 Years Hx Influenza Vaccine This Season: No Medications and Allergies Active Medications: Active Medications Acetaminophen (Tylenol) 650 mg PO Q4H PRN PRN Reason: Temp > 100.4 Al Hydroxide/Mg Hydroxide (Milk Of Magnesia Liq) 30 ml PO Q12H PRN PRN Reason: Mild Constipation Bisacodyl (Dulcolax Supp) 10 mg RECTAL DAILY PRN PRN Reason: SEVERE CONSITIPATION Clonidine HCl (Catapres) 0.1 mg PO Q6H PRN PRN Reason: HYPERTENSION Flumazenil (Romazecon Inj) 0.2 mg IV.PUSH Q1M PRN PRN Reason: OVERSEDATION Haloperidol Lactate (Haldol Inj) 1 mg IV.PUSH Q15M PRN PRN Reason: for severe agitation Heparin Sodium (Porcine) (Heparin Inj) 5,000 units SQ Q8HR STEFANIE Sodium Chloride (Ns Inj) 1,000 mls @ 0 mls/hr IV.SIG BOLUS [facility] Last Infusion: 04/09/18 18:25 Dose: Infused Sodium Chloride (Ns Inj) 1,000 mls @ 100 mls/hr IV.CONT .Q10H [facility] Last Admin: 04/09/18 19:17 Dose: 100 mls/hr Pharmacy Profile Note (Vancomycin Consult Pharmacy) 0 mls @ 0 mls/hr OTHER UNSCH [facility] Piperacillin/Tazobactam/Dextrose (Zosyn 3.375 Gm Premix) 50 mls @ 100 mls/hr IV.SIG Q8H [facility] Last Admin: 04/09/18 19:21 Dose: 100 mls/hr Lactulose (Lactulose Liq) 30 ml PO DAILY PRN PRN Reason: SEVERE CONSITIPATION Lorazepam (Ativan) 2 mg PO Q2H PRN PRN Reason: for CIWA 11-14 Lorazepam (Ativan Inj) 2 mg IV.PUSH Q2H PRN PRN Reason: for CIWA 11-14 Lorazepam (Ativan Inj) 2 mg IV.PUSH Q1H PRN PRN Reason: for CIWA 15-20 Lorazepam (Ativan Inj) 2 mg IV.PUSH Q15M PRN PRN Reason: for CIWA > 20 Lorazepam (Ativan Inj) 1 mg IV.PUSH Q4H PRN PRN Reason: for CIWA 8-10 Lorazepam (Ativan) 1 mg PO Q4H PRN PRN Reason: for CIWA 8-10 Morphine Sulfate (Morphine Inj) 2 mg IV.PUSH Q3H PRN PRN Reason: PAIN 3-5; IF UABLE TO TAKE PO Morphine Sulfate (Morphine Inj) 4 mg IV.PUSH Q3H PRN PRN Reason: BREAKTHROUGH PAIN Morphine Sulfate (Morphine Inj) 4 mg IV.PUSH Q3H PRN PRN Reason: PAIN 6-10;IF UNABLE TO TAKE PO Naloxone HCl (Narcan Inj) 0.4 mg IV.PUSH UNSCH PRN PRN Reason: SEE LABEL COMMENTS Nicotine (Habitrol 14 Mg Patch.24 Hr) 1 patch T-DERMAL DAILY [facility] Ondansetron HCl (Zofran Inj) 4 mg IV.PUSH Q6H PRN PRN Reason: NAUSEA OR VOMITING Oxycodone HCl (Roxicodone) 5 mg PO Q4H PRN PRN Reason: PAIN SCALE 3 TO 5 Oxycodone HCl (Roxicodone) 10 mg PO Q4H PRN PRN Reason: PAIN SCALE 6 TO 10 Patch Removal (Remove Old Patch) 1 each T-DERMAL DAILY [facility] Senna/Docusate Sodium (Anabel-Colace) 1 tab PO BID [facility] Sennosides (Senokot) 17.2 mg PO Q12H PRN PRN Reason: Moderate Constipation Zolpidem Tartrate (Ambien) 5 mg PO HS PRN PRN Reason: INSOMNIA Allergies Allergy/AdvReac Type Severity Reaction Status Date / Time No Known Allergies Allergy Verified 04/03/18 11:15 Home Medications Medication Instructions Recorded Confirmed Type No Known Home Medications 04/03/18 04/09/18 History Exam Vital signs: Vital Signs 04/09/18 11:53 Temperature 97.9 F Pulse Rate 87 Respiratory Rate 20 Blood Pressure 100/58 L Pulse Oximetry 99 Intake & Output 04/09/18 04/09/18 04/10/18 06:59 18:59 06:59 Intake Total 1250 / 1250 Balance 1250 / 1250 Weight 54.431 kg Intake: IV 1250 / 1250 NS Inj 1,000 ML @ Wide Open IV. 1000 / 1000 SIG BOLUS [facility] Rx#:[id number] Vancomycin Inj 1,000 MG In NS 250 / 250 Inj 250 ML @ 250 mls/hr IV.SIG [facility] Rx#:[id number] Narrative: PE: GENERAL: Young white female in no acute distress, resting comfortably. SKIN: Focused skin assessment warm and dry. HEENT: PERRLA, EOMI. No scleral icterus or conjunctival pallor. No lid lag or facial droop. CARDIOVASCULAR: Regular rate and rhythm. No obvious murmurs to auscultation. No chest tenderness to palpation. RESPIRATORY: No obvious rhonchi or wheezing. Clear to auscultation. Breath sounds equal bilaterally. GASTROINTESTINAL: Abdomen soft, non-tender, nondistended. BS normal. MUSCULOSKELETAL: Extremities without clubbing, cyanosis, or edema. No obvious deformities. Right knee with edema, drain in place NEUROLOGICAL: Awake, alert and oriented x4. No focal neurologic deficits. Moving both upper and lower extremities spontaneously. PSYCHIATRIC: Appropriate mood and affect. Insight and judgment normal. Results - Labs CBC & Chem 7: 04/09/18 17:00 04/09/18 17:00 Labs: Short CBC 04/09/18 Range/Units 17:00 WBC 8.4 (4.0-11.0) th/mm3 Hgb 11.1 L (11.6-15.3) gm/dL Hct 31.1 L (35.0-46.0) % Plt Count 414 (150-450) th/mm3 BMP 04/09/18 17:00 Sodium 138 Potassium 4.1 Chloride 102 Carbon Dioxide 28.1 BUN 18 Creatinine 0.61 Calcium 8.8 Liver Function 04/09/18 Range/Units 17:00 Total Bilirubin 0.2 (0.2-1.0) mg/dL AST 13 L (15-37) U/L ALT 24 (10-53) U/L Alkaline Phosphatase 88 (45-117) U/L Albumin 2.8 L (3.4-5.0) g/dL Caprini VTE Risk Assessment Caprini VTE Risk Assessment: No/Low Risk (score <= 1) VTE Mechanical Exception: LE injury/wound Caprini Risk Assessment Model: Point Value = 1 Point Value = 2 Point Value = 3 Point Value = 5 Age 41-60 Minor surgery BMI > 25 kg/m2 Swollen legs Varicose veins or History of unexplained or recurrent spontaneous Oral contraceptives or hormone replacement Sepsis (< 1 month) Serious lung disease, including pneumonia (< 1 month) Abnormal pulmonary function Acute myocardial infarction Congestive heart failure (< 1 month) History of inflammatory bowel disease Medical patient at bed rest Age 61-74 Arthroscopic surgery Major open surgery (> 45 min) Laparoscopic surgery (> 45 min) Malignancy Confined to bed (> 72 hours) Immobilizing plaster cast Central venous access Age >= 75 History of VTE Family history of VTE Factor V Leiden Prothrombin [id number] Lupus anticoagulant Anticardiolipin antibodies Elevated serum homocysteine Heparin-induced thrombocytopenia Other congenital or acquired thrombophilia Stroke (< 1 month) Elective arthroplasty Hip, pelvis, or leg fracture Acute spinal cord injury (< 1 month) Prophylaxis Regimen: Total Risk Factor Score Risk Level Prophylaxis Regimen 0-1 Low Early ambulation 2 Moderate Order ONE of the following: *Sequential Compression Device (SCD) *Heparin 5000 units SQ BID 3-4 Higher Order ONE of the following medications: *Heparin 5000 units SQ TID *Enoxaparin/Lovenox 40 mg SQ daily (WT < 150 kg, CrCl > 30 mL/min) *Enoxaparin/Lovenox 30 mg SQ daily (WT < 150 kg, CrCl > 10-29 mL/min) *Enoxaparin/Lovenox 30 mg SQ BID (WT < 150 kg, CrCl > 30 mL/min) AND/OR *Sequential Compression Device (SCD) 5 or more Highest Order ONE of the following medications: *Heparin 5000 units SQ TID (Preferred with Epidurals) *Enoxaparin/Lovenox 40 mg SQ daily (WT < 150 kg, CrCl > 30 mL/min) *Enoxaparin/Lovenox 30 mg SQ daily (WT < 150 kg, CrCl > 10-29 mL/min) *Enoxaparin/Lovenox 30 mg SQ BID (WT < 150 kg, CrCl > 30 mL/min) AND *Sequential Compression Device (SCD) Assessment and Plan - Assessment (1) IVDU (intravenous drug user) Code(s): F19.90 - Other psychoactive substance use, unspecified, uncomplicated Status: Acute (2) Septic arthritis of knee, right Code(s): M00.9 - Pyogenic arthritis, unspecified Status: Acute (3) Tobacco abuse Code(s): Z72.0 - Tobacco use Status: Acute - Plan A/P: 1. Septic Arthritis: Right Knee, recent admit 04/03/18 for similar, s/p I&D by Dr. Cohen on 04/04/18 w/ drain placement, LEFT AMA. Returns for re-admission, drain in place. S/p Vanc in ER, continue w/ Vanc/Cefepime, Ortho consulted for further eval, Consult ID as needed for antibiotic regimen. 2. IVDU: Counselled. Ativan prn. 3. Tobacco Abuse: Pt counselled. NicoDerm prn 4. DVT Prophylaxis: Heparin sq 5. Social work for d/c planning as needed 6. Case discussed w/ day physician at length, labs/records/imaging reviewed by me (2) Septic arthritis of knee, right Qualifiers: Septic arthritis organism: staphylococcal Qualified Code(s): M00.061 - Staphylococcal arthritis, right knee
--- NOTE | 2018-04-09 19:52 | MB ---
cc: Germain ESPINOZA DATE: 04/09/2018 CHIEF COMPLAINT: Right knee pain. CONSULTING PHYSICIAN: Dr. Garrido. HISTORY OF PRESENT ILLNESS: Narcisa is a 27-year-old female who underwent right knee irrigation and debridement for septic arthritis on Thursday. She left the hospital against medical advice on Thursday and has not been on any antibiotics since then. She represented to [place] emergency department today stating that her knee pain is not improving and that she is ready for IV antibiotics. Orthopedic surgery consultation was requested. On presentation at bedside, she does endorse global knee pain and effusion. She notes her drain has been in place. She has emptied this drain 2-3 times within the last week. She has not been taking antibiotics. She has been nonweightbearing secondary to the pain. She denies any fever, chills or other systemic symptoms. PAST MEDICAL HISTORY: Significant for IV drug abuse. PAST SURGICAL HISTORY: History of facial surgery. SOCIAL HISTORY: Endorses IV drug use. Also, endorses 1 pack per day smoking. MEDICATIONS: None. ALLERGIES: NO KNOWN DRUG ALLERGIES. REVIEW OF SYSTEMS: CONSTITUTIONAL: Negative for fever or chills. ABDOMINAL: Negative for stomach pain. CARDIOVASCULAR: Negative for heart or chest pain. NEUROLOGIC: Negative for numbness or tingling. MSK: Positive for right knee pain. PHYSICAL EXAMINATION: VITAL SIGNS: Temperature 97.9, pulse 87, blood pressure 100/58. GENERAL: She is alert and oriented x3 with a normal mood and affect. MSK: Focused evaluation of the right lower extremity demonstrates mild knee effusion. There is no surrounding erythema. The patient has difficulty with active knee flexion and extension. She has a passive knee range of motion that is nonpainful and about a 30 degree range of motion arc. Terminal flexion and extension are painful. She has cande in place on the lateral knee that are healing well. The drain is in place with serous discharge. There is no purulence within the drain. Sensation is intact to the sural, saphenous, SP DP and tibial nerve distribution. There is a 2+ DP pulse. ABDOMINAL: Nontender to palpation. CARDIOVASCULAR: Regular rate and rhythm. RESPIRATORY: Nonlabored breathing. No accessory muscle use. PSYCHIATRIC: Appropriate mood and affect. NEURO: As per above. LABORATORY DATA: White count 8.4. ASSESSMENT: Postoperative day 5 status post right knee irrigation and debridement with culture significant for Staphylococcus aureus. The patient left on postop day 1 against medical advice and has since been on no antibiotics with her drain in place. PLAN: 1. Weightbearing as tolerated to the right lower extremity. 2. Physical therapy and occupational therapy for knee range of motion, edema control. 3. We will maintain drain in place and plan for possible pull on Thursday once 48 hours of IV antibiotics. 4. Recommend ID consultation for final antibiotic recommendations. 5. Would consider 48-72 hours of admission until her pain continues to improve and then consider hospital discharge with p.o. antibiotic course. Orthopedic surgery will continue to follow patient's care. Please call with any questions or concerns. Germain Vaughan MD CM/ct , 07:05 PM , 07:15 PM
[2018-04-09] MEDS: Heparin - SQ 10,000 UNITS/ML Vial SQ SCH (20:00)
[2018-04-09 21:06] LABS: Hepatitis A IgM Antibody Nonreactive (Nonreactive); Hepatitits B Surface Antigen Nonreactive (Nonreactive)
[2018-04-09] MEDS: Senna/Docusate Sodium 8.6/50 MG Tablet PO SCH (21:55)
[2018-04-10] MEDS: Vancomycin Inj 750 MG in Sodium Chlor 0.9% Inj 250 ML IV.SIG SCH ×2 (00:37→08:41)
[2018-04-10] MEDS: Piperacil/Tazo 3.375 GM Premix 50 ML IV.SIG SCH (04:12)
[2018-04-10] MEDS: Sod Chloride 0.9% Inj 1,000 ML IV.CONT SCH ×2 (04:17→17:23)
[2018-04-10 04:19] LABS: Baso % (Auto) 0.6 % (0.0-2.0); Eos # (Auto) 0.1 th/mm3 (0.0-0.4); Eos % (Auto) 1.7 % (0.0-4.0); Hematocrit 28.7 % (35.0-46.0); Hemoglobin 9.3 gm/dL (11.6-15.3); Lymph # (Auto) 2.3 th/mm3 (1.0-4.8); Lymph % (Auto) 38.2 % (9.0-44.0); Mean Corpuscular HGB Conc 32.4 % (32.0-36.0); Mean Corpuscular Hemoglobin 27.9 pg (27.0-34.0); Mean Corpuscular Volume 86.2 fL (80.0-100.0); Mean Platelet Volume 7.2 fL (7.0-11.0); Mono # (Auto) 0.4 th/mm3 (0.0-0.9); Mono % (Auto) 7.1 % (0.0-8.0); Neut # (Auto) 3.2 th/mm3 (1.8-7.7); Neut % (Auto) 52.4 % (16.0-70.0); Platelet Count 345 th/mm3 (150-450); Red Blood Count 3.34 mil/mm3 (4.00-5.30); Red Cell Distribution Width 14.2 % (11.6-17.2)
[2018-04-10 04:49] LABS: Alanine Aminotransferase 18 U/L (10-53); Albumin 2.1 g/dL (3.4-5.0); Anion Gap 10 meq/L (5-15); Aspartate Aminotransferase 8 U/L (15-37); Blood Urea Nitrogen 15 mg/dL (7-18); Carbon Dioxide 24.8 meq/L (21.0-32.0); Chloride 108 meq/L (98-107); Glomerular Filtration Rate Greater Than 89 mL/min (>89); Glucose,Random 98 mg/dL (74-106); Phosphorus 3.3 mg/dL (2.5-4.9); Potassium 4.4 meq/L (3.5-5.1); Sodium 143 meq/L (136-145)
[2018-04-10 05:02] LABS: Alkaline Phosphatase 69 U/L (45-117); Thyroid Stimulating Hormone 0.555 uIU/mL (0.358-3.740); Total Protein 6.1 g/dL (6.4-8.2)
[2018-04-10] MEDS: Heparin - SQ 10,000 UNITS/ML Vial SQ SCH ×3 (05:49→21:09)
[2018-04-10] MEDS: Senna/Docusate Sodium 8.6/50 MG Tablet PO SCH ×2 (08:42→21:11)
--- NOTE | 2018-04-10 08:47 | P.PN ---
Subjective Interval history: She is in bed talking on the phone, she does not appear in acute distress. Does not appear in pain. No fever or chills overnight. No nausea or vomiting she is eating well. Physical Exam Vital signs: Vital Signs 04/09/18 11:53 04/09/18 19:32 04/09/18 20:50 Temperature 97.9 F Pulse Rate 87 88 Respiratory Rate 20 16 16 Blood Pressure 100/58 L 112/54 L Pulse Oximetry 99 97 04/09/18 21:31 04/10/18 00:28 04/10/18 04:38 Temperature 97.6 F 98.1 F 98.8 F Pulse Rate 88 87 73 Respiratory Rate 17 16 18 Blood Pressure 98/54 L 100/58 L 104/52 L Pulse Oximetry 96 98 96 04/10/18 08:00 Temperature 98.1 F Pulse Rate 78 Respiratory Rate 16 Blood Pressure 94/54 L Pulse Oximetry 94 L Intake & Output 04/09/18 04/10/18 04/10/18 18:59 06:59 18:59 Intake Total 1250 / 1250 2917.5 / 2917.5 Output Total 70 / 70 Balance 1250 / 1250 2847.5 / 2847.5 Weight 54.431 kg 54 kg Intake: IV 1250 / 1250 1357.5 / 1357.5 NS Inj 1,000 ML @ 100 mls/hr IV 1000 / 1000 .CONT .Q10H STEF[facility]IE Rx#:[id number] Zosyn 3.375 GM Premix 50 ML @ 100 / 100 100 mls/hr IV.SIG Q8H STEFANIE Rx#: [id number] NS Inj 1,000 ML @ Wide Open IV. 1000 / 1000 SIG BOLUS STEFANIE Rx#:[id number] Vancomycin Inj 1,000 MG In NS 250 / 250 Inj 250 ML @ 250 mls/hr IV.SIG [facility] [employer] [facility] Rx#:[id number] Vancomycin Inj 750 MG In NS Inj 257.5 / 257.5 250 ML @ 250 mls/hr IV.SIG Q8H STEFANIE Rx#:[id number] Oral 1560 / 1560 Output: Wound Drainage 70 / 70 Right Knee 70 / 70 Other: # Voids 3 Date of Last Bowel Movement 04/10/18 # Bowel Movements 1 Weight On Admission 54.431 kg Narrative: GENERAL: Young white female in no acute distress, resting comfortably. CARDIOVASCULAR: Regular rate and rhythm. No obvious murmurs to auscultation. No chest tenderness to palpation. RESPIRATORY: No obvious rhonchi or wheezing. Clear to auscultation. Breath sounds equal bilaterally. GASTROINTESTINAL: Abdomen soft, non-tender, nondistended. BS normal. MUSCULOSKELETAL: Extremities without clubbing, cyanosis, or edema. No obvious deformities. Right knee with edema, drain in place NEUROLOGICAL: Awake, alert and oriented x4. No focal neurologic deficits. Moving both upper and lower extremities spontaneously. PSYCHIATRIC: Appropriate mood and affect. Insight and judgment normal. Results - Labs CBC & Chem 7: 04/10/18 03:44 04/10/18 03:44 Laboratory Results - last 24 hr 04/09/18 04/09/18 04/09/18 17:00 17:00 17:00 WBC 8.4 RBC 3.68 L Hgb 11.1 L Hct 31.1 L MCV 84.4 MCH 30.3 MCHC 35.9 RDW 14.3 Plt Count 414 MPV 7.7 Neut % (Auto) 52.5 Lymph % (Auto) 38.3 [place] % (Auto) 6.8 Eos % (Auto) 1.3 Baso % (Auto) 1.1 Neut # (Auto) 4.4 Lymph # (Auto) 3.2 [place] # (Auto) 0.6 Eos # (Auto) 0.1 Baso # (Auto) 0.1 WBC Differential . Differential Comment Auto diff final PT 9.8 INR 1.0 APTT 31.3 H Sodium 138 Potassium 4.1 Chloride 102 Carbon Dioxide 28.1 Anion Gap 8 BUN 18 Creatinine 0.61 Estimated GFR Greater than 89 Random Glucose 89 Calcium 8.8 Phosphorus Magnesium Total Bilirubin 0.2 AST 13 L ALT 24 Alkaline Phosphatase 88 Total Protein 7.9 Albumin 2.8 L TSH Free T4 Hepatitis A IgM Ab Hep Bs Antigen Hep B Core IgM Ab Hep C IgG Ab 04/09/18 04/10/18 04/10/18 19:18 03:44 03:44 WBC 6.0 RBC 3.34 L Hgb 9.3 L Hct 28.7 L MCV 86.2 MCH 27.9 MCHC 32.4 RDW 14.2 Plt Count 345 MPV 7.2 Neut % (Auto) 52.4 Lymph % (Auto) 38.2 [place] % (Auto) 7.1 Eos % (Auto) 1.7 Baso % (Auto) 0.6 Neut # (Auto) 3.2 Lymph # (Auto) 2.3 [place] # (Auto) 0.4 Eos # (Auto) 0.1 Baso # (Auto) 0.0 WBC Differential . Differential Comment Auto diff final PT INR APTT Sodium 143 Potassium 4.4 Chloride 108 H Carbon Dioxide 24.8 Anion Gap 10 BUN 15 Creatinine 0.56 Estimated GFR Greater than 89 Random Glucose 98 Calcium 8.0 L D Phosphorus 3.3 Magnesium 2.0 Total Bilirubin 0.2 AST 8 L ALT 18 Alkaline Phosphatase 69 Total Protein 6.1 L D Albumin 2.1 L D TSH 0.555 Free T4 1.30 Hepatitis A IgM Ab Nonreactive Hep Bs Antigen Nonreactive Hep B Core IgM Ab Nonreactive Hep C IgG Ab Reactive H Assessment and Plan - Assessment (1) IVDU (intravenous drug user) Code(s): F19.90 - Other psychoactive substance use, unspecified, uncomplicated Status: Acute (2) Septic arthritis of knee, right Code(s): M00.9 - Pyogenic arthritis, unspecified Status: Acute (3) Tobacco abuse Code(s): Z72.0 - Tobacco use Status: Acute - Plan Septic Arthritis: Right Knee, recent admit 04/03/18 for similar, s/p I&D by Dr. Cohen on 04/04/18 w/ drain placement, LEFT AMA. Returns for re-admission, drain in place. Discontinue IV abx Vanc and Cefepime. Start Ancef IV antibiotic for an SSA Ortho consulted for further eval Consult ID as needed for antibiotic regimen. IVDU: Counselled. Ativan prn. Tobacco Abuse: Pt counselled. NicoDerm prn DVT Prophylaxis: Heparin sq CM consulted for d/c planning as needed Discussed with the patient, nurse, Dr. Rivera infectious disease specialist (2) Septic arthritis of knee, right Qualifiers: Septic arthritis organism: staphylococcal Qualified Code(s): M00.061 - Staphylococcal arthritis, right knee
--- NOTE | 2018-04-10 11:18 | P.CONID ---
History of Present Illness Service: Infectious Disease Consult date: 04/10/18 Requesting Physician: Sonali Parks Reason for Consult: Evaluate patient with septic right knee Primary Care Provider: No Primary Care Physician Family Provider: No Primary Care Physician History of Present Illness: Patient seen and examined. Records reviewed. Patient is a 27-year-old female, presented to the hospital for further evaluation and treatment of her right knee. She was recently hospitalized April 03 and at that time she was complaining of one-week history of pain and swelling in her right knee. She was found to have septic right knee, and underwent surgery on April 04. Culture grew MSSA. She had some low-grade temps at that time, and had a slightly elevated WBC. Patient however signed out AGAINST MEDICAL ADVICE on April 04, and she had a drain in her right knee when she signed out AMA. She was apparently emptying the SHAAN drain at home. She continues to have problem with her right knee as far swelling and pain, and presented back to the hospital for further evaluation and treatment. On readmission her temperatures have been normal, and her WBC is normal. She is currently complaining of pain on her right knee mostly medially. She had noted that the swelling on the right lower extremity has improved. She is currently on IV vancomycin and Zosyn. There is known history of IV drug use. During her last admission she was positive for opiates and cannabinoids. Infectious disease consultation has been requested to assist with evaluation and treatment. Review of Systems Constitutional: Denies chills, Denies fever(s), Denies night sweats Eyes: Denies discharge, Denies dry eyes Ears, Nose, Mouth, and Throat: Denies difficulty swallowing, Denies dizziness, Denies dry mouth, Denies facial pain, Denies headache(s), Denies mouth pain, Denies nasal congestion, Denies nasal discharge, Denies sinus pain, Denies sore throat Cardiovascular: Denies chest pain, Denies shortness of breath Respiratory: Denies chest congestion, Denies cough, Denies shortness of breath Gastrointestinal: Denies abdominal pain, Denies loose stools, Denies nausea, Denies pain with swallowing, Denies vomiting Genitourinary: Denies difficulty urinating, Denies painful urination Musculoskeletal: Reports joint pain, Reports joint swelling Skin/Breast: Denies rash, Denies sores PMFSH - History History Provided By: Patient - Medical History Medical History: Medical History (Last Updated 04/10/18 @ 11:21 by Cristal Rivera MD) Patient denies medical problems (Acute) Septic arthritis of knee, right - Surgical History Surgical History: Surgical History (Last Updated 04/10/18 @ 11:21 by Cristal Rivera MD) History of facial surgery (Acute) History of knee surgery - Family History Family History: Family History (Last Reviewed 04/10/18 @ 11:21 by Cristal Rivera MD) Other Heart disease - Tobacco History Second Hand Smoke Exposure: No Tobacco Use In Past 30 Days: Yes Smoking Status: Current every day smoker Tobacco Type: Cigarettes - Alcohol History How Often Do You Have a Drink Containing Alcohol: Monthly or less - Substance Use History Substance History: Past History - Travel History Recent Travel in the [place] Within the Last 8 Weeks: No Recent Travel Out of the Country Within the Last 8 Weeks: No - Immunization History Tetanus Immunization: >5 Years Hx Influenza Vaccine This Season: No Medications and Allergies Active Medications: Active Medications Acetaminophen (Tylenol) 650 mg PO Q4H PRN PRN Reason: Temp > 100.4 Al Hydroxide/Mg Hydroxide (Milk Of Kely Liq) 30 ml PO Q12H PRN PRN Reason: Mild Constipation Bisacodyl (Dulcolax Supp) 10 mg RECTAL DAILY PRN PRN Reason: SEVERE CONSITIPATION Clonidine HCl (Catapres) 0.1 mg PO Q6H PRN PRN Reason: HYPERTENSION Flumazenil (Romazecon Inj) 0.2 mg IV.PUSH Q1M PRN PRN Reason: OVERSEDATION Haloperidol Lactate (Haldol Inj) 1 mg IV.PUSH Q15M PRN PRN Reason: for severe agitation Heparin Sodium (Porcine) (Heparin Inj) 5,000 units SQ Q8HR [facility] Last Admin: 04/10/18 05:49 Dose: 5,000 units Sodium Chloride (Ns Inj) 1,000 mls @ 0 mls/hr IV.SIG BOLUS [facility] Last Infusion: 04/09/18 18:25 Dose: Infused Sodium Chloride (Ns Inj) 1,000 mls @ 100 mls/hr IV.CONT .Q10H [facility] Last Admin: 04/10/18 04:17 Dose: 100 mls/hr Cefazolin Sodium 2,000 mg/ (Sodium Chloride) 100 mls @ 200 mls/hr IV.SIG Q8H STEFANIE Lactulose (Lactulose Liq) 30 ml PO DAILY PRN PRN Reason: SEVERE CONSITIPATION Lorazepam (Ativan) 2 mg PO Q2H PRN PRN Reason: for CIWA 11-14 Lorazepam (Ativan Inj) 2 mg IV.PUSH Q2H PRN PRN Reason: for CIWA 11-14 Lorazepam (Ativan Inj) 2 mg IV.PUSH Q1H PRN PRN Reason: for CIWA 15-20 Lorazepam (Ativan Inj) 2 mg IV.PUSH Q15M PRN PRN Reason: for CIWA > 20 Lorazepam (Ativan Inj) 1 mg IV.PUSH Q4H PRN PRN Reason: for CIWA 8-10 Lorazepam (Ativan) 1 mg PO Q4H PRN PRN Reason: for CIWA 8-10 Miscellaneous Information ([facility] Ordered Lab Info) 1 each OTHER ONCE ONE Stop: 04/10/18 15:46 Morphine Sulfate (Morphine Inj) 2 mg IV.PUSH Q3H PRN PRN Reason: PAIN 3-5; IF UABLE TO TAKE PO Morphine Sulfate (Morphine Inj) 4 mg IV.PUSH Q3H PRN PRN Reason: BREAKTHROUGH PAIN Morphine Sulfate (Morphine Inj) 4 mg IV.PUSH Q3H PRN PRN Reason: PAIN 6-10;IF UNABLE TO TAKE PO Naloxone HCl (Narcan Inj) 0.4 mg IV.PUSH UNSCH PRN PRN Reason: SEE LABEL COMMENTS Nicotine (Habitrol 14 Mg Patch.24 Hr) 1 patch T-DERMAL DAILY [facility] Last Admin: 04/10/18 08:42 Dose: 1 patch Ondansetron HCl (Zofran Inj) 4 mg IV.PUSH Q6H PRN PRN Reason: NAUSEA OR VOMITING Oxycodone HCl (Roxicodone) 5 mg PO Q4H PRN PRN Reason: PAIN SCALE 3 TO 5 Last Admin: 04/10/18 08:50 Dose: 5 mg Oxycodone HCl (Roxicodone) 10 mg PO Q4H PRN PRN Reason: PAIN SCALE 6 TO 10 Patch Removal (Remove Old Patch) 1 each T-DERMAL DAILY [facility] Last Admin: 04/10/18 08:42 Dose: 1 each Senna/Docusate Sodium (Anabel-Colace) 1 tab PO BID [facility] Last Admin: 04/10/18 08:42 Dose: Not Given Sennosides (Senokot) 17.2 mg PO Q12H PRN PRN Reason: Moderate Constipation Zolpidem Tartrate (Ambien) 5 mg PO HS PRN PRN Reason: INSOMNIA Allergies Allergy/AdvReac Type Severity Reaction Status Date / Time No Known Allergies Allergy Verified 04/03/18 11:15 Home Medications Medication Instructions Recorded Confirmed Type No Known Home Medications 04/03/18 04/09/18 History Exam Vital signs: Vital Signs 04/09/18 11:53 04/09/18 19:32 04/09/18 20:50 Temperature 97.9 F Pulse Rate 87 88 Respiratory Rate 20 16 16 Blood Pressure 100/58 L 112/54 L Pulse Oximetry 99 97 04/09/18 21:31 04/10/18 00:28 04/10/18 04:38 Temperature 97.6 F 98.1 F 98.8 F Pulse Rate 88 87 73 Respiratory Rate 17 16 18 Blood Pressure 98/54 L 100/58 L 104/52 L Pulse Oximetry 96 98 96 04/10/18 08:00 Temperature 98.1 F Pulse Rate 78 Respiratory Rate 16 Blood Pressure 94/54 L Pulse Oximetry 94 L Intake & Output 04/09/18 04/10/18 04/10/18 18:59 06:59 18:59 Intake Total 1250 / 1250 2917.5 / 2917.5 257.5 / 257.5 Output Total 70 / 70 Balance 1250 / 1250 2847.5 / 2847.5 257.5 / 257.5 Weight 54.431 kg 54 kg Intake: IV 1250 / 1250 1357.5 / 1357.5 257.5 / 257.5 NS Inj 1,000 ML @ 100 mls/hr IV 1000 / 1000 .CONT .Q10H ST[facility]IE Rx#:[id number] Zosyn 3.375 GM Premix 50 ML @ 100 / 100 100 mls/hr IV.SIG Q8H STEFANIE Rx#: [id number] NS Inj 1,000 ML @ Wide Open IV. 1000 / 1000 SIG BOLUS STEFANIE Rx#:[id number] Vancomycin Inj 1,000 MG In NS 250 / 250 Inj 250 ML @ 250 mls/hr IV.SIG [employer] ONE Rx#:[id number] Vancomycin Inj 750 MG In NS Inj 257.5 / 257.5 257.5 / 257.5 250 ML @ 250 mls/hr IV.SIG Q8H STEFANIE Rx#:[id number] Oral 1560 / 1560 Output: Wound Drainage 70 / 70 Right Knee 70 / Other: # Voids 3 Date of Last Bowel Movement 04/10/18 # Bowel Movements 1 Weight On Admission 54.431 kg Narrative: Physical Examination GENERAL: Patient is a well-nourished, well-developed patient, awake and alert , not in respiratory distress. SKIN: Warm and dry. No generalized rash, no ecchymoses and no evidence of embolic lesions. HEAD: Atraumatic. Normocephalic. No temporal wasting, or tenderness. EYES: [place] conjunctiva. No petechia or hemorrhage. Pupils equal, round and reactive to light. Extraocular movements full and intact. No scleral icterus. No injection or drainage. EARS, NOSE AND THROAT: Nose without bleeding or purulent nasal discharge. No sinus tenderness. Mucous membranes pink and moist. No oral lesions noted. No exudate. No oral thrush. NECK: Trachea midline. Supple and not tender, no meningeal signs CARDIOVASCULAR: Regular rate and rhythm. No murmurs, rubs or gallops heard RESPIRATORY: Clear to auscultation. Breath sounds equal bilaterally. No rales , wheezing or rhonchi ABDOMEN: Soft, non-tender, nondistended. Bowel sounds present and normoactive. No guarding. No rebound. No organomegaly. EXTREMITIES: No clubbing, cyanosis. Her RLE is larger compared to the LLE. R knee - swollen, no erythema noted, incision is clean and dry, SHAAN drain in place with serous fluid, has very limited ROM on the R knee joint. No calf tenderness. NEUROLOGICAL: Awake and alert. Cranial nerves grossly intact. Motor grossly within normal limits. PSYCHIATRIC: Normal affect, calm and cooperative. LINE: No evidence of infection Results - Labs CBC & Chem 7: 04/13/18 03:42 04/13/18 03:42 Labs: Laboratory Results - last 24 hr 04/09/18 04/09/18 04/09/18 17:00 17:00 17:00 WBC 8.4 RBC 3.68 L Hgb 11.1 L Hct 31.1 L MCV 84.4 MCH 30.3 MCHC 35.9 RDW 14.3 Plt Count 414 MPV 7.7 Neut % (Auto) 52.5 Lymph % (Auto) 38.3 [place] % (Auto) 6.8 Eos % (Auto) 1.3 Baso % (Auto) 1.1 Neut # (Auto) 4.4 Lymph # (Auto) 3.2 [place] # (Auto) 0.6 Eos # (Auto) 0.1 Baso # (Auto) 0.1 WBC Differential . Differential Comment Auto diff final PT 9.8 INR 1.0 APTT 31.3 H Sodium 138 Potassium 4.1 Chloride 102 Carbon Dioxide 28.1 Anion Gap 8 BUN 18 Creatinine 0.61 Estimated GFR Greater than 89 Random Glucose 89 Calcium 8.8 Phosphorus Magnesium Total Bilirubin 0.2 AST 13 L ALT 24 Alkaline Phosphatase 88 Total Protein 7.9 Albumin 2.8 L TSH Free T4 Hepatitis A IgM Ab Hep Bs Antigen Hep B Core IgM Ab Hep C IgG Ab 04/09/18 04/10/18 04/10/18 19:18 03:44 03:44 WBC 6.0 RBC 3.34 L Hgb 9.3 L Hct 28.7 L MCV 86.2 MCH 27.9 MCHC 32.4 RDW 14.2 Plt Count 345 MPV 7.2 Neut % (Auto) 52.4 Lymph % (Auto) 38.2 [place] % (Auto) 7.1 Eos % (Auto) 1.7 Baso % (Auto) 0.6 Neut # (Auto) 3.2 Lymph # (Auto) 2.3 [place] # (Auto) 0.4 Eos # (Auto) 0.1 Baso # (Auto) 0.0 WBC Differential . Differential Comment Auto diff final PT INR APTT Sodium 143 Potassium 4.4 Chloride 108 H Carbon Dioxide 24.8 Anion Gap 10 BUN 15 Creatinine 0.56 Estimated GFR Greater than 89 Random Glucose 98 Calcium 8.0 L D Phosphorus 3.3 Magnesium 2.0 Total Bilirubin 0.2 AST 8 L ALT 18 Alkaline Phosphatase 69 Total Protein 6.1 L D Albumin 2.1 L D TSH 0.555 Free T4 1.30 Hepatitis A IgM Ab Nonreactive Hep Bs Antigen Nonreactive Hep B Core IgM Ab Nonreactive Hep C IgG Ab Reactive H Assessment and Plan - Plan Impression MSSA septic arthritis R knee - S/P OR 04/04 Known IVDU Has signed out AMA postop Recommendation Follow cultures Her previous blood cultures have been negative Stop vancomycin Stop Zosyn IV Ancef to cover MSSA Monitor progress I will determine course of treatment depending on the results of the workup and her clinical progress I will follow along with you Thank you for this consultation
[2018-04-10 11:50] LABS: Hemoglobin A1c 6.2 % (4.3-6.0)
[2018-04-10] MEDS: ceFAZolin Inj 2,000 MG in Sodium Chlor 0.9% Inj 80 ML IV.SIG SCH ×2 (13:02→22:09)
[2018-04-10] MEDS ORDERED: Pharmacy Ordered Lab Info OTHER ONE (15:45)
[2018-04-11] MEDS: ceFAZolin Inj 2,000 MG in Sodium Chlor 0.9% Inj 80 ML IV.SIG SCH ×3 (04:34→20:57)
[2018-04-11] MEDS: Sod Chloride 0.9% Inj 1,000 ML IV.CONT SCH ×3 (04:35→20:59)
[2018-04-11] MEDS: Heparin - SQ 10,000 UNITS/ML Vial SQ SCH ×4 (04:37→21:01)
[2018-04-11] MEDS: Senna/Docusate Sodium 8.6/50 MG Tablet PO SCH ×2 (08:48→20:57)
--- NOTE | 2018-04-11 14:03 | P.PN ---
Subjective Interval history: She is in bed does not appear in acute distress. Does not appear in pain. Says swelling in her right knee and leg is improving. No pain at this time. No fever or chills. No nausea vomiting she is eating fairly well. No tremors no palpitations. Physical Exam Vital signs: Vital Signs 04/10/18 16:00 04/10/18 20:00 04/11/18 00:00 Temperature 98.4 F 98.0 F 98.2 F Pulse Rate 82 71 85 Respiratory Rate 18 17 18 Blood Pressure 102/52 L 97/55 L 99/55 L Pulse Oximetry 97 97 96 04/11/18 08:00 04/11/18 11:52 Temperature 98.6 F 98.8 F Pulse Rate 90 81 Respiratory Rate 17 16 Blood Pressure 120/70 108/62 Pulse Oximetry 98 98 Intake & Output 04/10/18 04/11/18 04/11/18 18:59 06:59 18:59 Intake Total 1357.5 / 1357.5 200 / 200 Output Total 30 / 30 Balance 1357.5 / 1357.5 170 / 170 Intake: IV 1357.5 / 1357.5 200 / 200 NS Inj 1,000 ML @ 100 mls/hr IV 1000 / 1000 .CONT .Q10H ST[facility]IE Rx#:[id number] Vancomycin Inj 750 MG In NS Inj 257.5 / 257.5 250 ML @ 250 mls/hr IV.SIG Q8H STEFANIE Rx#:[id number] Ancef Inj 2,000 MG In NS Inj 80 100 / 100 200 / 200 ML @ 200 mls/hr IV.SIG Q8H STEFANIE Rx#:[id number] Output: Wound Drainage Right Knee 30 Other: # Voids 3 Narrative: GENERAL: Young white female in no acute distress, resting comfortably. CARDIOVASCULAR: Regular rate and rhythm. No obvious murmurs to auscultation. No chest tenderness to palpation. RESPIRATORY: No obvious rhonchi or wheezing. Clear to auscultation. Breath sounds equal bilaterally. GASTROINTESTINAL: Abdomen soft, non-tender, nondistended. BS normal. MUSCULOSKELETAL: Extremities without clubbing, cyanosis, or edema. No obvious deformities. Right knee with edema, drain in place NEUROLOGICAL: Awake, alert and oriented x4. No focal neurologic deficits. Moving both upper and lower extremities spontaneously. PSYCHIATRIC: Appropriate mood and affect. Insight and judgment normal. Results - Labs CBC & Chem 7: 04/10/18 03:44 04/10/18 03:44 Assessment and Plan - Assessment (1) IVDU (intravenous drug user) Code(s): F19.90 - Other psychoactive substance use, unspecified, uncomplicated Status: Acute (2) Septic arthritis of knee, right Code(s): M00.9 - Pyogenic arthritis, unspecified Status: Acute (3) Tobacco abuse Code(s): Z72.0 - Tobacco use Status: Acute - Plan Septic Arthritis: Right Knee, recent admit 04/03/18 for similar, s/p I&D by Dr. Cohen on 04/04/18 w/ drain placement, LEFT AMA. Returns for re-admission, drain in place. Discontinue IV abx Vanc and Cefepime. Start Ancef IV antibiotic for an MSSA Ortho consulted for further eval Consult ID for antibiotic regimen. IVDU: Counselled. Ativan prn. Tobacco Abuse: Pt counselled. NicoDerm prn DVT Prophylaxis: Heparin sq CM consulted for d/c planning as needed Discussed with the patient, nurse (2) Septic arthritis of knee, right Qualifiers: Septic arthritis organism: staphylococcal Qualified Code(s): M00.061 - Staphylococcal arthritis, right knee
[2018-04-11] MEDS: Acetaminophen 325 MG Tablet PO PRN (22:39)
--- NOTE | 2018-04-11 23:17 | P.PNOP ---
Subjective Interval history: Endorses pain is improving. Still refusing to weight bear. Physical Exam Vital signs: Vital Signs 04/11/18 00:00 04/11/18 08:00 04/11/18 11:52 Temperature 98.2 F 98.6 F 98.8 F Pulse Rate 85 90 81 Respiratory Rate 18 17 16 Blood Pressure 99/55 L 120/70 108/62 Pulse Oximetry 96 98 98 04/11/18 16:00 04/11/18 20:00 Temperature 98.5 F 102.8 F H Pulse Rate 84 116 H Respiratory Rate 16 20 Blood Pressure 106/57 L 114/59 L Pulse Oximetry 98 96 Intake & Output 04/11/18 04/11/18 04/12/18 06:59 18:59 06:59 Intake Total 200 / 200 1100 / 1100 1100 / 1100 Output Total Balance 170 / 170 1070 / 1070 1100 / 1100 Intake: IV 200 / 200 1100 / 1100 1100 / 1100 NS Inj 1,000 ML @ 100 mls/hr IV 1000 / 1000 1000 / 1000 .CONT .Q10H STEFANIE Rx#:[id number] Ancef Inj 2,000 MG In NS Inj 80 200 / 200 100 / 100 100 / 100 ML @ 200 mls/hr IV.SIG Q8H STEFANIE Rx#:[id number] Output: Wound Drainage Right Knee Other: # Voids 3 - Constitutional no acute distress - Detailed Lower Extremity Exam Comments: Right knee with drain in place with serous output. Moderate knee effusion. Incision c/d/i. Painful AROM of the knee. Painless ROM arc (passive) in 30 degrees only. SILT to SP/DP/tibial/saphenous/sural. 2+ DP/PT pulses. - Routine Neurological Exam Present: alert, oriented X3 Results - Labs CBC & Chem 7: 04/10/18 03:44 04/10/18 03:44 Assessment and Plan - Assessment and Plan Right knee MSSA septic arthritis s/p I&D 7 days ago. Left AMA. Returns for IV abx, Appreciate ID recs for antibiotic change for MSSA treatment Patient states her knee pain is improving. Exam is unchanged since Thursday Lab markers improving Discussed plan of care with Dr. Cohen; may consider repeat I&D. Please maintain NPO after MN for re-eval by Dr. Cohen Thursday.
[2018-04-12] MEDS: Heparin - SQ 10,000 UNITS/ML Vial SQ SCH ×3 (05:00→22:32)
[2018-04-12] MEDS: Sod Chloride 0.9% Inj 1,000 ML IV.CONT SCH ×2 (07:37→17:37)
[2018-04-12] MEDS ORDERED: Chlorhexidine Gluconate 2% 1 Pack (2 Cloths) TOPICAL ONE (07:45)
[2018-04-12] MEDS ORDERED: Metoprolol Tartrate 25 MG Tablet PO ONE (07:45)
[2018-04-12] MEDS ORDERED: Sodium Chlor 0.9% Inj 500 ML IV.CONT ONE (07:45)
[2018-04-12] MEDS: Senna/Docusate Sodium 8.6/50 MG Tablet PO SCH ×2 (08:01→22:29)
[2018-04-12] MEDS ORDERED: Lidocaine PF 1% Inj 5 ML Syringe OTHER ONE (09:00)
[2018-04-12] MEDS ORDERED: Neostigmine Inj 5 MG/5 ML Syringe IV.PUSH ONE (09:00)
[2018-04-12] MEDS ORDERED: Esmolol Bolus Inj 100 MG/10 ML Vial IV.PUSH ONE (09:00)
[2018-04-12] MEDS ORDERED: Glycopyrrolate Inj 1 MG/5 ML Syringe IV.PUSH ONE (09:00)
[2018-04-12] MEDS: ceFAZolin Inj 2,000 MG in Sodium Chlor 0.9% Inj 80 ML IV.SIG SCH ×2 (09:27→17:36)
[2018-04-12] MEDS ORDERED: Post-op Orders (for Pharmacy) OTHER STA (09:37)
--- NOTE | 2018-04-12 09:43 | P.OP ---
- Preoperative Diagnosis (1) Septic arthritis of knee, right Date of procedure: 04/12/18 Procedure: Right knee arthrotomy with irrigation debridement Anesthesia: GETA Surgeon: Jose Rome MD Office Administration: KARTHIK Carrillo PA-C The surgical procedure was assisted by my physician assistant field hockey coach. My P.A. presence was necessary throughout this case for the manipulation and positioning of the surgical extremity. My P.A. was assisting me throughout the duration of this procedure. The skill set of a physician assistant field hockey coach was medically necessary to complete this procedure. During the surgical case the operating room surgical technologist was working at the back table and the physician assistant field hockey coach was directly assisting me. Operation and Findings: Patient was seen and evaluated preoperatively. Patient was found to have infection of the right knee joint. She was originally diagnosed with a septic right knee approximately 1 week ago. She had irrigation and debridement performed at that time. She left AMA shortly after the surgery and did not have appropriate antibiotic treatment. Knee effusion and erythema were noted. Informed consent was obtained after detailed discussion of risk and benefits of surgery. Operative site was marked. Patient was brought to the operating room. IV sedation and GETA were administered by anesthesiologist. Operative leg was prepped with alcohol followed by Hibiclens and draped in usual sterile fashion. Timeout procedure was performed. Procedure began with a 4 cm incision over the lateral knee. Subcutaneous tissue dissected with Bovie. Iliotibial band was opened in line with fibers. The joint was now opened through arthrotomy. A large volume of purulent fluid was found within the knee. Specimen was obtained for cultures and sensitivities. The knee joint was manipulated. The knee joint was palpated and loculations were manually debrided. A portion of the synovium was excised. After excisional debridement was complete, the wound was thoroughly irrigated with sterile saline. At this point the wound was clean. Capsule was closed with #1 PDS, Subcutaneous tissues closed with 3-0 PDS and skin was closed with 3 -0 nylon. A SHAAN drain was placed into the wound. Sterile dressings were applied. Patient was awakened and transferred to recovery in stable condition. Needle and sponge counts were correct
[2018-04-12] MEDS ORDERED: *morphine SULFATE 4 MG/ML PERIprocedure ONLY ONE ×2 (09:58→10:11)
[2018-04-12] MEDS ORDERED: fentaNYL Citrate Inj 100 MCG/2 ML Ampul ONE (10:00)
--- NOTE | 2018-04-12 10:47 | P.PN ---
Subjective Interval history: Is seen after the surgery. Pain is fairly controlled by medications. No fever or chills. No nausea vomiting. Physical Exam Vital signs: Vital Signs 04/11/18 11:52 04/11/18 16:00 04/11/18 20:00 Temperature 98.8 F 98.5 F 102.8 F H Pulse Rate 81 84 116 H Respiratory Rate 16 16 20 Blood Pressure 108/62 106/57 L 114/59 L Pulse Oximetry 98 98 96 04/12/18 00:00 04/12/18 04:00 04/12/18 07:19 Temperature 100.6 F H 98.5 F 99.3 F Pulse Rate 110 H 90 Respiratory Rate 20 16 Blood Pressure 115/57 L 116/65 Pulse Oximetry 97 97 Intake & Output 04/11/18 04/12/18 04/12/18 18:59 06:59 18:59 Intake Total 1100 / 1100 1100 / 1100 1300 / 1300 Output Total 30 / 30 2125 / 2125 20 / 20 Balance 1070 / 1070 -1025 / -1025 1280 / 1280 Intake: IV 1100 / 1100 1100 / 1100 800 / 800 NS Inj 1,000 ML @ 100 mls/hr IV 1000 / 1000 1000 / 1000 800 / 800 .CONT .Q10H [facility] Rx#:[id number] Ancef Inj 2,000 MG In NS Inj 80 100 / 100 100 / 100 ML @ 200 mls/hr IV.SIG Q8H [facility] Rx#:[id number] Anesthesia Amount 500 / 500 Output: Urine 2125 / 2125 Estimated Blood Loss 20 / 20 Wound Drainage 30 / 30 Right Knee 30 / 30 Narrative: GENERAL: Young white female in no acute distress, resting comfortably. CARDIOVASCULAR: Regular rate and rhythm. No obvious murmurs to auscultation. No chest tenderness to palpation. RESPIRATORY: No obvious rhonchi or wheezing. Clear to auscultation. Breath sounds equal bilaterally. GASTROINTESTINAL: Abdomen soft, non-tender, nondistended. BS normal. MUSCULOSKELETAL: Extremities without clubbing, cyanosis, or edema. No obvious deformities. Right knee with dressing CDI, drain in place NEUROLOGICAL: Awake, alert and oriented x4. No focal neurologic deficits. Moving both upper and lower extremities spontaneously. PSYCHIATRIC: Appropriate mood and affect. Insight and judgment normal. Results - Labs CBC & Chem 7: 04/10/18 03:44 04/10/18 03:44 - Procedures Right knee arthrotomy with irrigation debridement 04/12/[address] Cohen Assessment and Plan - Assessment (1) IVDU (intravenous drug user) Code(s): F19.90 - Other psychoactive substance use, unspecified, uncomplicated Status: Acute (2) Septic arthritis of knee, right Code(s): M00.9 - Pyogenic arthritis, unspecified Status: Acute (3) Tobacco abuse Code(s): Z72.0 - Tobacco use Status: Acute - Plan Septic Arthritis: Right Knee, recent admit 04/03/18 for similar, s/p I&D by Dr. Cohen on 04/04/18 w/ drain placement, LEFT AMA. Returns for re-admission, drain in place. S/P Right knee arthrotomy with irrigation debridement 04/12/[address] Cohen Discontinue IV abx Vanc and Cefepime. Start Ancef IV antibiotic for an MSSA Ortho consulted for further eval Consult ID for antibiotic regimen. IVDU: Counselled. Ativan prn. Tobacco Abuse: Pt counselled. NicoDerm prn DVT Prophylaxis: Heparin sq CM consulted for d/c planning as needed Discussed with the patient, nurse (2) Septic arthritis of knee, right Qualifiers: Septic arthritis organism: staphylococcal Qualified Code(s): M00.061 - Staphylococcal arthritis, right knee
[2018-04-12] MEDS: Morphine Inj 4 MG/ML Vial IV.PUSH PRN ×2 (11:52→17:49)
[2018-04-12] MEDS ORDERED: LORazepam 1 MG Tablet PO ONE (22:14)
[2018-04-13] MEDS: ceFAZolin Inj 2,000 MG in Sodium Chlor 0.9% Inj 80 ML IV.SIG SCH ×3 (01:09→16:33)
[2018-04-13] MEDS: Sod Chloride 0.9% Inj 1,000 ML IV.CONT SCH ×3 (03:53→22:30)
[2018-04-13] MEDS: Heparin - SQ 10,000 UNITS/ML Vial SQ SCH ×3 (05:59→22:00)
--- NOTE | 2018-04-13 06:52 | P.PNOP ---
Subjective Interval history: Patient is awake and alert, Resting comfortable Physical Exam Vital signs: Vital Signs 04/12/18 07:19 04/12/18 09:55 04/12/18 10:00 Temperature 99.3 F 98.5 F Pulse Rate 90 106 H 100 H Respiratory Rate 16 15 15 Blood Pressure 116/65 141/75 H 111/58 L Pulse Oximetry 97 98 98 04/12/18 10:15 04/12/18 12:00 04/12/18 16:00 Temperature 98.2 F 98.0 F 98.0 F Pulse Rate 69 87 88 Respiratory Rate 15 16 14 Blood Pressure 102/59 L 110/59 L 103/65 Pulse Oximetry 98 97 96 04/12/18 20:00 04/13/18 00:00 Temperature 98.1 F 98.1 F Pulse Rate 80 73 Respiratory Rate 18 18 Blood Pressure 105/55 L 110/55 L Pulse Oximetry 97 97 Intake & Output 04/12/18 04/12/18 04/13/18 06:59 18:59 06:59 Intake Total 1100 / 1100 1600 / 1600 480 / 480 Output Total 2125 / 2125 30 / 30 10 / 10 Balance -1025 / -1025 1570 / 1570 470 / 470 Intake: IV 1100 / 1100 1100 / 1100 0 / 0 LR 1000 mL Inj 1,000 ML @ 30 0 / 0 mls/hr IV.CONT .Q24H [facility] Rx#: [id number] NS Inj 1,000 ML @ 100 mls/hr IV 1000 / 1000 1000 / 1000 0 / 0 .CONT .Q10H [facility] Rx#:[id number] Ancef Inj 2,000 MG In NS Inj 80 100 / 100 100 / 100 ML @ 200 mls/hr IV.SIG Q8H [facility] Rx#:[id number] Oral 480 / 480 Anesthesia Amount 500 / 500 Output: Urine 5 / 2125 Estimated Blood Loss 20 / 20 Wound Drainage 0 / 0 10 10 Right Knee 0 / 0 10 Other: # Voids 2 Narrative: Examination right knee reveals clean dry dressings. Drain is in place. Serosanguineous drainage in drain. Improved swelling. Results - Labs CBC & Chem 7: 04/10/18 03:44 04/10/18 03:44 Microbiology 04/12/18 09:24 Tissue - Knee Fungal Smear - Final No fungal elements seen 04/12/18 09:24 Tissue - Knee Gram Stain - Final - Procedures Right knee arthrotomy with irrigation debridement 04/12/[address] Cohen Assessment and Plan - Assessment and Plan Postop day #1 status post irrigation and debridement of right knee septic arthritis Infectious disease for antibiotic recommendations Continue drain times 2 days Physical therapy weight-bear as tolerated and right knee range of motion
[2018-04-13 07:29] LABS: Baso % (Auto) 0.5 % (0.0-2.0); Eos # (Auto) 0.1 th/mm3 (0.0-0.4); Eos % (Auto) 1.2 % (0.0-4.0); Hematocrit 30.7 % (35.0-46.0); Hemoglobin 10.5 gm/dL (11.6-15.3); Mean Corpuscular HGB Conc 34.1 % (32.0-36.0); Mean Corpuscular Hemoglobin 28.4 pg (27.0-34.0); Mean Corpuscular Volume 83.4 fL (80.0-100.0); Mean Platelet Volume 7.2 fL (7.0-11.0); Mono # (Auto) 0.8 th/mm3 (0.0-0.9); Mono % (Auto) 12.8 % (0.0-8.0); Neut # (Auto) 3.4 th/mm3 (1.8-7.7); Neut % (Auto) 53.5 % (16.0-70.0); Platelet Count 408 th/mm3 (150-450); Red Blood Count 3.69 mil/mm3 (4.00-5.30); Red Cell Distribution Width 14.2 % (11.6-17.2); White Blood Count 6.4 th/mm3 (4.0-11.0)
[2018-04-13 07:47] LABS: Anion Gap 6 meq/L (5-15); Blood Urea Nitrogen 10 mg/dL (7-18); Calcium 8.6 mg/dL (8.5-10.1); Carbon Dioxide 27.1 meq/L (21.0-32.0); Chloride 106 meq/L (98-107); Glomerular Filtration Rate Greater Than 89 mL/min (>89); Glucose,Random 94 mg/dL (74-106); Potassium 4.3 meq/L (3.5-5.1); Sodium 139 meq/L (136-145)
[2018-04-13] MEDS: Senna/Docusate Sodium 8.6/50 MG Tablet PO SCH ×2 (08:19→20:36)
[2018-04-13] MEDS: Morphine Inj 4 MG/ML Vial IV.PUSH PRN ×4 (09:53→21:29)
--- NOTE | 2018-04-13 14:29 | P.PNID ---
Subjective Remarks: Patient is a 27-year-old female, presented to the hospital for further evaluation and treatment of her right knee. She was recently hospitalized April 03 and at that time she was complaining of one-week history of pain and swelling in her right knee. She was found to have septic right knee, and underwent surgery on April 04. Culture grew MSSA. She had some low-grade temps at that time, and had a slightly elevated WBC. Patient however signed out AGAINST MEDICAL ADVICE on April 04, and she had a drain in her right knee when she signed out AMA. She was apparently emptying the SHAAN drain at home. She continues to have problem with her right knee as far swelling and pain, and presented back to the hospital for further evaluation and treatment. On readmission her temperatures have been normal, and her WBC is normal. She is currently complaining of pain on her right knee mostly medially. She had noted that the swelling on the right lower extremity has improved. She is currently on IV vancomycin and Zosyn. There is no on history of IV drug use. During her last admission she was positive for opiates and cannabinoids. Infectious disease consultation has been requested to assist with evaluation and treatment. Notes reviewed temps ok Went to OR yesterday - still with purulent fluid seen Repeat fluid C/S pending pain better Antibiotics: Ancef Lines: PIV Past Medical History: Septic arthritis of knee, right History of facial surgery (Acute) History of knee surgery Allergies/Adverse Reactions: Allergies No Known Allergies Allergy (Verified 04/03/18 11:15) Objective Vital Signs 04/12/18 16:00 04/12/18 20:00 04/13/18 00:00 Temperature 98.0 F 98.1 F 98.1 F Pulse Rate 88 80 73 Respiratory Rate 14 18 18 Blood Pressure 103/65 105/55 L 110/55 L Pulse Oximetry 96 97 97 04/13/18 08:00 04/13/18 08:49 04/13/18 09:55 Temperature 98.0 F Pulse Rate 81 Respiratory Rate 17 17 17 Blood Pressure 117/56 L Pulse Oximetry 95 04/13/18 12:00 04/13/18 12:43 Temperature 100.0 F H 98.9 F Pulse Rate 115 H Respiratory Rate 17 Blood Pressure 124/62 Pulse Oximetry 97 Intake & Output 04/12/18 04/13/18 04/13/18 18:59 06:59 18:59 Intake Total 1600 / 1600 580 / 580 1100 / 1100 Output Total / 30 10 Balance 1570 / 1570 570 / 570 1100 / 1100 Intake: IV 1100 / 1100 100 / 100 1100 / 1100 LR 1000 mL Inj 1,000 ML @ 30 0 / 0 mls/hr IV.CONT .Q24H [facility] Rx#: [id number] NS Inj 1,000 ML @ 100 mls/hr IV 1000 / 1000 0 / 0 1000 / 1000 .CONT .Q10H [facility] Rx#:[id number] Ancef Inj 2,000 MG In NS Inj 80 100 / 100 100 / 100 100 / 100 ML @ 200 mls/hr IV.SIG Q8H [facility] Rx#:[id number] Oral 480 / 480 Anesthesia Amount 500 / 500 Output: Estimated Blood Loss Wound Drainage Right Knee Other: # Voids 2 04/12/18 09:24 Tissue - Knee Gram Stain - Final 04/12/18 09:24 Tissue - Knee Wound Culture - Preliminary No growth in 24 hours 04/12/18 09:24 Tissue - Knee Fungal Smear - Final No fungal elements seen 04/12/18 09:24 Tissue - Knee Fungal Culture - Pending 04/12/18 09:24 Tissue - Knee Acid Fast Bacilli Smear - Pending 04/12/18 09:24 Tissue - Knee Mycobacterial Culture - Pending Lab - Hematology Results 04/13/18 03:42 WBC 6.4 RBC 3.69 L Hgb 10.5 L Hct 30.7 L MCV 83.4 MCH 28.4 MCHC 34.1 RDW 14.2 Plt Count 408 MPV 7.2 Neut % (Auto) 53.5 Lymph % (Auto) 32.0 [place] % (Auto) 12.8 H Eos % (Auto) 1.2 Baso % (Auto) 0.5 Neut # (Auto) 3.4 Lymph # (Auto) 2.0 [place] # (Auto) 0.8 Eos # (Auto) 0.1 Baso # (Auto) 0.0 WBC Differential . Differential Comment Auto diff final Lab - Chemistry Results 04/13/18 03:42 Sodium 139 Potassium 4.3 Chloride 106 Carbon Dioxide 27.1 Anion Gap 6 BUN 10 Creatinine 0.67 Estimated GFR Greater than 89 Random Glucose 94 Calcium 8.6 Physical Exam: GENERAL: awake and alert, not in respiratory distress. SKIN: Warm and dry. No generalized rash. HEAD: Atraumatic. Normocephalic. No temporal wasting, or tenderness. EYES: [place] conjunctiva. No petechia or hemorrhage. No scleral icterus. No injection or drainage. EARS, NOSE AND THROAT: Mucous membranes pink and moist. No oral lesions noted. No exudate. No oral thrush. NECK: Trachea midline. Supple and not tender, no meningeal signs CARDIOVASCULAR: Regular rate and rhythm. No murmurs, rubs or gallops heard RESPIRATORY: Clear to auscultation. Breath sounds equal bilaterally. No rales , wheezing or rhonchi ABDOMEN: Soft, non-tender, nondistended. Bowel sounds present and normoactive. No guarding. No rebound. No organomegaly. EXTREMITIES: No clubbing, cyanosis. Her RLE is larger compared to the LLE. R knee - with dressing in place, drain in place. No calf tenderness. NEUROLOGICAL: Grossly within normal limits. PSYCHIATRIC: Normal affect, calm and cooperative. LINE: No evidence of infection Assessment and Plan - Plan Impression MSSA septic arthritis R knee - S/P OR 04/04 Known IVDU Has signed out AMA postop Recommendation Follow new cultures Her previous blood cultures have been negative IV Ancef to cover MSSA Monitor progress I will determine course of treatment depending on the results of the workup and her clinical progress
--- NOTE | 2018-04-13 17:31 | P.PN ---
Subjective Interval history: The patient is in bed appears sleepy. No fever or chills. Pain is fairly controlled by medications she is asking for more pain medications. Drain in place. Knee is wrapped CDI Physical Exam Vital signs: Vital Signs 04/12/18 20:00 04/13/18 00:00 04/13/18 08:00 Temperature 98.1 F 98.1 F 98.0 F Pulse Rate 80 73 81 Respiratory Rate 18 18 17 Blood Pressure 105/55 L 110/55 L 117/56 L Pulse Oximetry 97 97 95 04/13/18 08:49 04/13/18 09:55 04/13/18 12:00 Temperature 100.0 F H Pulse Rate 115 H Respiratory Rate 17 17 17 Blood Pressure 124/62 Pulse Oximetry 97 04/13/18 12:43 04/13/18 14:05 04/13/18 14:27 Temperature 98.9 F Pulse Rate Respiratory Rate 17 17 Blood Pressure Pulse Oximetry Intake & Output 04/12/18 04/13/18 04/13/18 18:59 06:59 18:59 Intake Total 1600 / 1600 580 / 580 1100 / 1100 Output Total 30 / 30 10 / 10 Balance 1570 / 1570 570 / 570 1100 / 1100 Intake: IV 1100 / 1100 100 / 100 1100 / 1100 LR 1000 mL Inj 1,000 ML @ 30 0 / 0 mls/hr IV.CONT .Q24H [facility] Rx#: [id number] NS Inj 1,000 ML @ 100 mls/hr IV 1000 / 1000 0 / 0 1000 / 1000 .CONT .Q10H [facility] Rx#:[id number] Ancef Inj 2,000 MG In NS Inj 80 100 / 100 100 / 100 100 / 100 ML @ 200 mls/hr IV.SIG Q8H [facility] Rx#:[id number] Oral 480 / 480 Anesthesia Amount 500 / 500 Output: Estimated Blood Loss 20 / 20 Wound Drainage Right Knee Other: # Voids 2 Narrative: GENERAL: Young white female in no acute distress, resting comfortably. CARDIOVASCULAR: Regular rate and rhythm. No obvious murmurs to auscultation. No chest tenderness to palpation. RESPIRATORY: No obvious rhonchi or wheezing. Clear to auscultation. Breath sounds equal bilaterally. GASTROINTESTINAL: Abdomen soft, non-tender, nondistended. BS normal. MUSCULOSKELETAL: Extremities without clubbing, cyanosis, or edema. No obvious deformities. Right knee with dressing CDI, drain in place NEUROLOGICAL: Awake, alert and oriented x4. No focal neurologic deficits. Moving both upper and lower extremities spontaneously. PSYCHIATRIC: Appropriate mood and affect. Insight and judgment normal. Results - Labs CBC & Chem 7: 04/13/18 03:42 04/13/18 03:42 Laboratory Results - last 24 hr 04/13/18 04/13/18 03:42 03:42 WBC 6.4 RBC 3.69 L Hgb 10.5 L Hct 30.7 L MCV 83.4 MCH 28.4 MCHC 34.1 RDW 14.2 Plt Count 408 MPV 7.2 Neut % (Auto) 53.5 Lymph % (Auto) 32.0 [place] % (Auto) 12.8 H Eos % (Auto) 1.2 Baso % (Auto) 0.5 Neut # (Auto) 3.4 Lymph # (Auto) 2.0 [place] # (Auto) 0.8 Eos # (Auto) 0.1 Baso # (Auto) 0.0 WBC Differential . Differential Comment Auto diff final Sodium 139 Potassium 4.3 Chloride 106 Carbon Dioxide 27.1 Anion Gap 6 BUN 10 Creatinine 0.67 Estimated GFR Greater than 89 Random Glucose 94 Calcium 8.6 Microbiology 04/12/18 09:24 Tissue - Knee Gram Stain - Final 04/12/18 09:24 Tissue - Knee Wound Culture - Preliminary No growth in 24 hours 04/12/18 09:24 Tissue - Knee Fungal Smear - Final No fungal elements seen - Procedures Right knee arthrotomy with irrigation debridement 04/12/[address] Cohen Assessment and Plan - Assessment (1) IVDU (intravenous drug user) Code(s): F19.90 - Other psychoactive substance use, unspecified, uncomplicated Status: Acute (2) Septic arthritis of knee, right Code(s): M00.9 - Pyogenic arthritis, unspecified Status: Acute (3) Tobacco abuse Code(s): Z72.0 - Tobacco use Status: Acute - Plan Septic Arthritis: Right Knee, recent admit 04/03/18 for similar, s/p I&D by Dr. Cohen on 04/04/18 w/ drain placement, LEFT AMA. Returns for re-admission, drain in place. S/P Right knee arthrotomy with irrigation debridement 04/12/[address] Cohen Pain management per surgeon Discontinue IV abx Vanc and Cefepime. Start Ancef IV antibiotic for an MSSA per infectious disease specialist Ortho consulted for further eval ID specialist is consulted and is following for antibiotic regimen. IVDU: Counselled. Ativan prn. Tobacco Abuse: Pt counselled. NicoDerm prn DVT Prophylaxis: Heparin sq CM consulted for d/c planning as needed Discussed with the patient, nurse (2) Septic arthritis of knee, right Qualifiers: Septic arthritis organism: staphylococcal Qualified Code(s): M00.061 - Staphylococcal arthritis, right knee
[2018-04-13] MEDS: Zolpidem Tartrate 5 MG Tablet PO PRN (20:41)
[2018-04-13] MEDS: Haloperidol Inj 5 MG/ML Ampul IV.PUSH PRN (20:41)
[2018-04-13] MEDS: Acetaminophen 325 MG Tablet PO PRN (23:29)
[2018-04-14] MEDS: ceFAZolin Inj 2,000 MG in Sodium Chlor 0.9% Inj 80 ML IV.SIG SCH ×3 (00:31→17:06)
[2018-04-14] MEDS: Morphine Inj 4 MG/ML Vial IV.PUSH PRN ×6 (01:40→21:11)
[2018-04-14] MEDS: Haloperidol Inj 5 MG/ML Ampul IV.PUSH PRN ×5 (04:36→21:12)
[2018-04-14] MEDS: Heparin - SQ 10,000 UNITS/ML Vial SQ SCH ×3 (06:03→21:53)
[2018-04-14] MEDS: Senna/Docusate Sodium 8.6/50 MG Tablet PO SCH ×2 (08:39→20:24)
--- NOTE | 2018-04-14 09:27 | P.PNID ---
Subjective Remarks: Patient is a 27-year-old female, presented to the hospital for further evaluation and treatment of her right knee. She was recently hospitalized April 03 and at that time she was complaining of one-week history of pain and swelling in her right knee. She was found to have septic right knee, and underwent surgery on April 04. Culture grew MSSA. She had some low-grade temps at that time, and had a slightly elevated WBC. Patient however signed out AGAINST MEDICAL ADVICE on April 04, and she had a drain in her right knee when she signed out AMA. She was apparently emptying the SHAAN drain at home. She continues to have problem with her right knee as far swelling and pain, and presented back to the hospital for further evaluation and treatment. On readmission her temperatures have been normal, and her WBC is normal. She is currently complaining of pain on her right knee mostly medially. She had noted that the swelling on the right lower extremity has improved. She is currently on IV vancomycin and Zosyn. There is no on history of IV drug use. During her last admission she was positive for opiates and cannabinoids. Infectious disease consultation has been requested to assist with evaluation and treatment. Notes reviewed Febrile at midnight - 102 Pain better OR done 04/12, C/S negative so far Previous C/S MSSA, BC negative No rash or itching No diarrhea Voiding ok Antibiotics: Ancef Lines: PIV Past Medical History: Septic arthritis of knee, right History of facial surgery (Acute) History of knee surgery Allergies/Adverse Reactions: Allergies No Known Allergies Allergy (Verified 04/03/18 11:15) Objective Vital Signs 04/13/18 09:55 04/13/18 12:00 04/13/18 12:43 Temperature 100.0 F H 98.9 F Pulse Rate 115 H Respiratory Rate 17 17 Blood Pressure 124/62 Pulse Oximetry 97 04/13/18 14:05 04/13/18 14:27 04/13/18 16:00 Temperature 99.1 F Pulse Rate 98 H Respiratory Rate 17 17 19 Blood Pressure 108/57 L Pulse Oximetry 98 04/13/18 17:03 04/13/18 17:41 04/13/18 20:00 Temperature 99.4 F Pulse Rate 101 H Respiratory Rate 18 17 18 Blood Pressure 129/68 Pulse Oximetry 96 04/13/18 21:04 04/13/18 21:31 04/14/18 00:00 Temperature 102.2 F H Pulse Rate 114 H Respiratory Rate 18 17 17 Blood Pressure 110/67 Pulse Oximetry 98 04/14/18 01:00 04/14/18 01:42 04/14/18 02:33 Temperature 99.3 F Pulse Rate Respiratory Rate 17 17 Blood Pressure Pulse Oximetry 04/14/18 05:05 04/14/18 06:05 04/14/18 08:00 Temperature 98.4 F Pulse Rate 96 H Respiratory Rate 18 17 17 Blood Pressure 109/69 Pulse Oximetry 97 Intake & Output 04/13/18 04/14/18 04/14/18 18:59 06:59 18:59 Intake Total 1740 / 1740 1580 / 1580 1000 / 1000 Output Total 500 / 500 Balance 1240 / 1240 1572 / 1572 1000 / 1000 Weight 52.5 kg Intake: IV 1200 / 1200 1000 / 1000 1000 / 1000 NS Inj 1,000 ML @ 100 mls/hr IV 1000 / 1000 1000 / 1000 1000 / 1000 .CONT .Q10H [facility] Rx#:[id number] Ancef Inj 2,000 MG In NS Inj 80 200 / 200 ML @ 200 mls/hr IV.SIG Q8H [facility] Rx#:[id number] Oral 540 / 540 580 / 580 Output: Urine 500 / 500 Wound Drainage Right Knee Other: # Voids 3 Date of Last Bowel Movement 04/13/18 # Bowel Movements 0 04/12/18 09:24 Tissue - Knee Gram Stain - Final 04/12/18 09:24 Tissue - Knee Wound Culture - Preliminary No growth in 24 hours 04/12/18 09:24 Tissue - Knee Fungal Smear - Final No fungal elements seen 04/12/18 09:24 Tissue - Knee Fungal Culture - Pending 04/12/18 09:24 Tissue - Knee Acid Fast Bacilli Smear - Pending 04/12/18 09:24 Tissue - Knee Mycobacterial Culture - Pending Lab - Hematology Results 04/13/18 03:42 WBC 6.4 RBC 3.69 L Hgb 10.5 L Hct 30.7 L MCV 83.4 MCH 28.4 MCHC 34.1 RDW 14.2 Plt Count 408 MPV 7.2 Neut % (Auto) 53.5 Lymph % (Auto) 32.0 [place] % (Auto) 12.8 H Eos % (Auto) 1.2 Baso % (Auto) 0.5 Neut # (Auto) 3.4 Lymph # (Auto) 2.0 [place] # (Auto) 0.8 Eos # (Auto) 0.1 Baso # (Auto) 0.0 WBC Differential . Differential Comment Auto diff final Lab - Chemistry Results 04/13/18 03:42 Sodium 139 Potassium 4.3 Chloride 106 Carbon Dioxide 27.1 Anion Gap 6 BUN 10 Creatinine 0.67 Estimated GFR Greater than 89 Random Glucose 94 Calcium 8.6 Physical Exam: GENERAL: awake and alert, not in respiratory distress. SKIN: Warm and dry. No generalized rash. HEAD: Atraumatic. Normocephalic. No temporal wasting, or tenderness. EYES: [place] conjunctiva. No petechia or hemorrhage. No scleral icterus. No injection or drainage. EARS, NOSE AND THROAT: Mucous membranes pink and moist. No oral lesions noted. No exudate. No oral thrush. NECK: Trachea midline. Supple and not tender, no meningeal signs CARDIOVASCULAR: Regular rate and rhythm. No murmurs, rubs or gallops heard RESPIRATORY: Clear to auscultation. Breath sounds equal bilaterally. No rales , wheezing or rhonchi ABDOMEN: Soft, non-tender, nondistended. Bowel sounds present and normoactive. No guarding. No rebound. No organomegaly. EXTREMITIES: No clubbing, cyanosis. Her RLE is larger compared to the LLE. R knee - with dressing in place, drain in place. No calf tenderness. NEUROLOGICAL: Grossly within normal limits. PSYCHIATRIC: Normal affect, calm and cooperative. LINE: No evidence of infection Assessment and Plan - Plan Impression MSSA septic arthritis R knee - S/P OR 04/04 Known IVDU Has signed out AMA postop Post op fever Recommendation Follow cultures Repeat BC today Recheck ESR and CRP Continue IV Ancef to cover MSSA Follow temps Monitor progress
[2018-04-14] MEDS: Sod Chloride 0.9% Inj 1,000 ML IV.CONT SCH ×2 (09:50→18:00)
--- NOTE | 2018-04-14 11:38 | P.PN ---
Subjective Interval history: The patient is seen bed says feels improved today. Pain is fairly controlled in her knee. Less edema. However the patient feels her knee is tight. No fever or chills overnight. No nausea or vomiting she is able to eat fairly well. Physical Exam Vital signs: Vital Signs 04/13/18 12:00 04/13/18 12:43 04/13/18 14:05 Temperature 100.0 F H 98.9 F Pulse Rate 115 H Respiratory Rate 17 17 Blood Pressure 124/62 Pulse Oximetry 97 04/13/18 14:27 04/13/18 16:00 04/13/18 17:03 Temperature 99.1 F Pulse Rate 98 H Respiratory Rate 17 19 18 Blood Pressure 108/57 L Pulse Oximetry 98 04/13/18 17:41 04/13/18 20:00 04/13/18 21:04 Temperature 99.4 F Pulse Rate 101 H Respiratory Rate 17 18 18 Blood Pressure 129/68 Pulse Oximetry 96 04/13/18 21:31 04/14/18 00:00 04/14/18 01:00 Temperature 102.2 F H Pulse Rate 114 H Respiratory Rate 17 17 17 Blood Pressure 110/67 Pulse Oximetry 98 04/14/18 01:42 04/14/18 02:33 04/14/18 05:05 Temperature 99.3 F Pulse Rate Respiratory Rate 17 18 Blood Pressure Pulse Oximetry 04/14/18 06:05 04/14/18 08:00 Temperature 98.4 F Pulse Rate 96 H Respiratory Rate 17 17 Blood Pressure 109/69 Pulse Oximetry 97 Intake & Output 04/13/18 04/14/18 04/14/18 18:59 06:59 18:59 Intake Total 1740 / 1740 1680 / 1680 1000 / 1000 Output Total 500 / 500 Balance 1240 / 1240 1672 / 1672 1000 / 1000 Weight 52.5 kg Intake: IV 1200 / 1200 1100 / 1100 1000 / 1000 NS Inj 1,000 ML @ 100 mls/hr IV 1000 / 1000 1000 / 1000 1000 / 1000 .CONT .Q10H [facility] Rx#:[id number] Ancef Inj 2,000 MG In NS Inj 80 200 / 200 100 / 100 ML @ 200 mls/hr IV.SIG Q8H [facility] Rx#:[id number] Oral 540 / 540 580 / 580 Output: Urine 500 / 500 Wound Drainage Right Knee Other: # Voids 3 Date of Last Bowel Movement 04/13/18 # Bowel Movements 0 Narrative: GENERAL: Young white female in no acute distress, resting comfortably. CARDIOVASCULAR: Regular rate and rhythm. No obvious murmurs to auscultation. No chest tenderness to palpation. RESPIRATORY: No obvious rhonchi or wheezing. Clear to auscultation. Breath sounds equal bilaterally. GASTROINTESTINAL: Abdomen soft, non-tender, nondistended. BS normal. MUSCULOSKELETAL: Extremities without clubbing, cyanosis, or edema. No obvious deformities. Right knee with dressing CDI, drain in place NEUROLOGICAL: Awake, alert and oriented x4. No focal neurologic deficits. Moving both upper and lower extremities spontaneously. PSYCHIATRIC: Appropriate mood and affect. Insight and judgment normal. Results - Labs CBC & Chem 7: 04/13/18 03:42 04/13/18 03:42 Microbiology 04/12/18 09:24 Tissue - Knee Acid Fast Bacilli Smear - Final No acid fast bacilli seen 04/12/18 09:24 Tissue - Knee Gram Stain - Final 04/12/18 09:24 Tissue - Knee Wound Culture - Preliminary No growth in 48 hours - Procedures Right knee arthrotomy with irrigation debridement 04/12/[address] Cohen Assessment and Plan - Assessment (1) IVDU (intravenous drug user) Code(s): F19.90 - Other psychoactive substance use, unspecified, uncomplicated Status: Acute (2) Septic arthritis of knee, right Code(s): M00.9 - Pyogenic arthritis, unspecified Status: Acute (3) Tobacco abuse Code(s): Z72.0 - Tobacco use Status: Acute - Plan Septic Arthritis: Right Knee, recent admit 04/03/18 for similar, s/p I&D by Dr. Cohen on 04/04/18 w/ drain placement, LEFT AMA. Returns for re-admission, drain in place. S/P Right knee arthrotomy with irrigation debridement 04/12/[address] Cohen Pain management per surgeon Discontinued IV abx Vanc and Cefepime. Continue Ancef IV antibiotic for an MSSA per infectious disease specialist Ortho consulted for further eval, ff ID specialist is consulted and is following for antibiotic regimen, ff. IVDU: Counselled. Ativan prn. Tobacco Abuse: Pt counselled. NicoDerm prn DVT Prophylaxis: Heparin sq CM consulted for d/c planning as needed Discussed with the patient, nurse (2) Septic arthritis of knee, right Qualifiers: Septic arthritis organism: staphylococcal Qualified Code(s): M00.061 - Staphylococcal arthritis, right knee
[2018-04-14] MEDS: Zolpidem Tartrate 5 MG Tablet PO PRN (20:21)
[2018-04-15] MEDS: Morphine Inj 4 MG/ML Vial IV.PUSH PRN ×4 (00:19→13:41)
[2018-04-15] MEDS: ceFAZolin Inj 2,000 MG in Sodium Chlor 0.9% Inj 80 ML IV.SIG SCH ×2 (00:21→08:38)
[2018-04-15] MEDS: Haloperidol Inj 5 MG/ML Ampul IV.PUSH PRN ×3 (04:00→12:12)
[2018-04-15] MEDS: Sod Chloride 0.9% Inj 1,000 ML IV.CONT SCH ×2 (05:02→15:19)
[2018-04-15] MEDS: Heparin - SQ 10,000 UNITS/ML Vial SQ SCH ×2 (05:02→13:16)
[2018-04-15] MEDS: Senna/Docusate Sodium 8.6/50 MG Tablet PO SCH (08:39)
[2018-04-15 11:50] VITALS: BP 121/79; PULSE 138; RESP 19; TEMP 97.8; O2SAT 95
--- NOTE | 2018-04-15 12:14 | P.PN ---
Subjective Interval history: Ambulating with a walker says she has pain in her knee. No fever overnight as reports chills. Eating fairly well. Tachycardia and she is in pain at this time. No nausea vomiting no diarrhea constipation. Physical Exam Vital signs: Vital Signs 04/14/18 16:00 04/14/18 20:00 04/14/18 21:13 Temperature 98.6 F 99.5 F Pulse Rate 103 H 125 H Respiratory Rate 18 18 17 Blood Pressure 102/56 L 120/71 Pulse Oximetry 98 95 04/14/18 22:22 04/15/18 00:00 04/15/18 00:21 Temperature 99.3 F Pulse Rate 98 H Respiratory Rate 17 16 17 Blood Pressure 118/56 L Pulse Oximetry 98 04/15/18 04:30 04/15/18 05:03 04/15/18 08:00 Temperature 97.9 F Pulse Rate 100 H Respiratory Rate 17 18 18 Blood Pressure 106/62 Pulse Oximetry 99 04/15/18 11:49 Temperature 97.8 F Pulse Rate 138 H Respiratory Rate 19 Blood Pressure 121/79 Pulse Oximetry 95 Intake & Output 04/14/18 04/15/18 04/15/18 18:59 06:59 18:59 Intake Total 1825 / 1825 100 / 100 Output Total 500 / 500 / 10 Balance 1825 / 1825 -400 / -400 -10 Intake: IV 1200 / 1200 100 / 100 NS Inj 1,000 ML @ 100 mls/hr IV 1000 / 1000 .CONT .Q10H STEF[facility]IE Rx#:[id number] Ancef Inj 2,000 MG In NS Inj 80 200 / 200 100 / 100 ML @ 200 mls/hr IV.SIG Q8H STEFANIE Rx#:[id number] Oral 625 / 625 Output: Urine 500 / 500 Wound Drainage 0 / 0 10 / 10 Right Knee 0 / 0 10 10 Other: # Voids 6 Date of Last Bowel Movement 04/13/18 04/15/18 # Bowel Movements 0 Narrative: GENERAL: Young white female in no acute distress, resting comfortably. CARDIOVASCULAR: Regular rate and rhythm. No obvious murmurs to auscultation. No chest tenderness to palpation. RESPIRATORY: No obvious rhonchi or wheezing. Clear to auscultation. Breath sounds equal bilaterally. GASTROINTESTINAL: Abdomen soft, non-tender, nondistended. BS normal. MUSCULOSKELETAL: Extremities without clubbing, cyanosis, or edema. No obvious deformities. Right knee with quarter bleeding on the dressing, drain in place NEUROLOGICAL: Awake, alert and oriented x4. No focal neurologic deficits. Moving both upper and lower extremities spontaneously. PSYCHIATRIC: Appropriate mood and affect. Insight and judgment normal. Results - Labs CBC & Chem 7: 04/13/18 03:42 04/13/18 03:42 Laboratory Results - last 24 hr 04/14/18 11:09 ESR 68 H Microbiology 04/12/18 09:24 Tissue - Knee Gram Stain - Final 04/12/18 09:24 Tissue - Knee Wound Culture - Final No growth in 72 hours (aerobically and anaerobically ) 04/14/18 10:59 Blood - Peripheral Aerobic Blood Culture - Preliminary No growth in 1 day 04/14/18 10:59 Blood - Peripheral Anaerobic Blood Culture - Preliminary No growth in 1 day 04/14/18 11:09 Blood - Peripheral Aerobic Blood Culture - Preliminary No growth in 1 day 04/14/18 11:09 Blood - Peripheral Anaerobic Blood Culture - Preliminary No growth in 1 day 04/12/18 09:24 Tissue - Knee Acid Fast Bacilli Smear - Final No acid fast bacilli seen - Procedures Right knee arthrotomy with irrigation debridement 04/12/[address] Cohen Assessment and Plan - Assessment (1) IVDU (intravenous drug user) Code(s): F19.90 - Other psychoactive substance use, unspecified, uncomplicated Status: Acute (2) Septic arthritis of knee, right Code(s): M00.9 - Pyogenic arthritis, unspecified Status: Acute (3) Tobacco abuse Code(s): Z72.0 - Tobacco use Status: Acute - Plan Septic Arthritis: Right Knee, recent admit 04/03/18 for similar, s/p I&D by Dr. Cohen on 04/04/18 w/ drain placement, LEFT AMA. Returns for re-admission, drain in place. S/P Right knee arthrotomy with irrigation debridement 04/12/[address] Cohen Pain management per surgeon Discontinued IV abx Vanc and Cefepime. Continue Ancef IV antibiotic for an MSSA per infectious disease specialist Ortho consulted and ff ID specialist is consulted and is following for antibiotic regimen, ff. IVDU: Counselled. Ativan prn. Tobacco Abuse: Pt counselled. NicoDerm prn DVT Prophylaxis: Heparin sq CM consulted for d/c planning as needed Discussed with the patient, nurse (2) Septic arthritis of knee, right Qualifiers: Septic arthritis organism: staphylococcal Qualified Code(s): M00.061 - Staphylococcal arthritis, right knee
--- NOTE | 2018-04-15 12:44 | P.PNID ---
Subjective Remarks: Patient is a 27-year-old female, presented to the hospital for further evaluation and treatment of her right knee. She was recently hospitalized April 03 and at that time she was complaining of one-week history of pain and swelling in her right knee. She was found to have septic right knee, and underwent surgery on April 04. Culture grew MSSA. She had some low-grade temps at that time, and had a slightly elevated WBC. Patient however signed out AGAINST MEDICAL ADVICE on April 04, and she had a drain in her right knee when she signed out AMA. She was apparently emptying the SHAAN drain at home. She continues to have problem with her right knee as far swelling and pain, and presented back to the hospital for further evaluation and treatment. On readmission her temperatures have been normal, and her WBC is normal. She is currently complaining of pain on her right knee mostly medially. She had noted that the swelling on the right lower extremity has improved. She is currently on IV vancomycin and Zosyn. There is no on history of IV drug use. During her last admission she was positive for opiates and cannabinoids. Infectious disease consultation has been requested to assist with evaluation and treatment. Notes reviewed Temps normal >24 hours BC negative so far 04/14 Fluid C/S negative Pain better OR done 04/12, C/S negative so far Previous C/S MSSA, BC negative No rash or itching No diarrhea Voiding ok Antibiotics: Ancef Lines: PIV Past Medical History: Septic arthritis of knee, right History of facial surgery (Acute) History of knee surgery Allergies/Adverse Reactions: Allergies No Known Allergies Allergy (Verified 04/03/18 11:15) Objective Vital Signs 04/14/18 16:00 04/14/18 20:00 04/14/18 21:13 Temperature 98.6 F 99.5 F Pulse Rate 103 H 125 H Respiratory Rate 18 18 17 Blood Pressure 102/56 L 120/71 Pulse Oximetry 98 95 04/14/18 22:22 04/15/18 00:00 04/15/18 00:21 Temperature 99.3 F Pulse Rate 98 H Respiratory Rate 17 16 17 Blood Pressure 118/56 L Pulse Oximetry 98 04/15/18 04:30 04/15/18 05:03 04/15/18 08:00 Temperature 97.9 F Pulse Rate 100 H Respiratory Rate 17 18 18 Blood Pressure 106/62 Pulse Oximetry 99 04/15/18 11:49 Temperature 97.8 F Pulse Rate 138 H Respiratory Rate 19 Blood Pressure 121/79 Pulse Oximetry 95 Intake & Output 04/14/18 04/15/18 04/15/18 18:59 06:59 18:59 Intake Total 1825 / 1825 100 / 100 Output Total 500 / 500 10 / 10 Balance 1825 / 1825 -400 / -400 -10 / -10 Intake: IV 1200 / 1200 100 / 100 NS Inj 1,000 ML @ 100 mls/hr IV 1000 / 1000 .CONT .Q10H [facility] Rx#:[id number] Ancef Inj 2,000 MG In NS Inj 80 200 / 200 100 / 100 ML @ 200 mls/hr IV.SIG Q8H STEFANIE Rx#:[id number] Oral 625 / 625 Output: Urine 500 / 500 Wound Drainage 0 / 0 10 10 Right Knee 0 / 0 Other: # Voids 6 Date of Last Bowel Movement 04/13/18 04/15/18 # Bowel Movements 0 04/12/18 09:24 Tissue - Knee Gram Stain - Final 04/12/18 09:24 Tissue - Knee Wound Culture - Final No growth in 72 hours (aerobically and anaerobically ) 04/14/18 10:59 Blood - Peripheral Aerobic Blood Culture - Preliminary No growth in 1 day 04/14/18 10:59 Blood - Peripheral Anaerobic Blood Culture - Preliminary No growth in 1 day 04/14/18 11:09 Blood - Peripheral Aerobic Blood Culture - Preliminary No growth in 1 day 04/14/18 11:09 Blood - Peripheral Anaerobic Blood Culture - Preliminary No growth in 1 day 04/12/18 09:24 Tissue - Knee Acid Fast Bacilli Smear - Final No acid fast bacilli seen 04/12/18 09:24 Tissue - Knee Mycobacterial Culture - Pending 04/12/18 09:24 Tissue - Knee Fungal Smear - Final No fungal elements seen 04/12/18 09:24 Tissue - Knee Fungal Culture - Pending Lab - Hematology Results 04/14/18 11:09 ESR 68 H Lab - Chemistry Results 04/14/18 11:09 C-Reactive Protein 11.00 H Physical Exam: GENERAL: awake and alert, not in respiratory distress. SKIN: Warm and dry. No generalized rash. HEAD: Atraumatic. Normocephalic. No temporal wasting, or tenderness. EYES: [employer] conjunctiva. No petechia or hemorrhage. No scleral icterus. No injection or drainage. EARS, NOSE AND THROAT: Mucous membranes pink and moist. No oral lesions noted. No exudate. No oral thrush. NECK: Trachea midline. Supple and not tender, no meningeal signs CARDIOVASCULAR: Regular rate and rhythm. No murmurs, rubs or gallops heard RESPIRATORY: Clear to auscultation. Breath sounds equal bilaterally. No rales , wheezing or rhonchi ABDOMEN: Soft, non-tender, nondistended. Bowel sounds present and normoactive. No guarding. No rebound. No organomegaly. EXTREMITIES: No clubbing, cyanosis. Her RLE is larger compared to the LLE. R knee - with dressing in place, drain in place. No calf tenderness. NEUROLOGICAL: Grossly within normal limits. PSYCHIATRIC: Normal affect, calm and cooperative. LINE: No evidence of infection Assessment and Plan - Plan Impression MSSA septic arthritis R knee - S/P OR 04/04 Known IVDU Has signed out AMA postop Post op fever Recommendation Follow cultures Continue IV Ancef to cover MSSA Follow temps If BC negative and temps ok, may consider po Abx on D/C early next week Monitor progress
--- NOTE | 2018-04-15 17:25 | P.DS ---
Date of admission: 04/09/18 18:35 Primary care physician: No Primary Care Physician Brief History from admission: This is a 27-year-old female with a PMH of IVDU, Tobacco Abuse and Right Knee Septic Arthritis who presented to ER for readmission. Recent admit 04/03/18 for right knee pain, found to have right knee septic arthritis, s/p Right Knee Arthrotomy w/ I&D by Dr. Cohen on 04/04/18, was on Vanc/Zosyn and LEFT AMA on , returns now for re-admission and ongoing knee pain. Pain is constant, 10 /10, worse w/ movement. On arrival, BP 100/58, HR 87, O2 sat 99% on RA, Afebrile. CBC essentially unremarkable. INR 1.0. Chemistry unremarkable. Hepatitis Panel pending. S/p Vanc in ER. Ortho consulted for further eval. DS: Diagnosis - Discharge Diagnosis (1) IVDU (intravenous drug user) Status: Acute (2) Septic arthritis of knee, right Status: Acute (3) Tobacco abuse Status: Acute DS: Summary Hospital Course: Septic Arthritis: Right Knee, recent admit 04/03/18 for similar, s/p I&D by Dr. Cohen on 04/04/18 w/ drain placement, LEFT AMA. Returns for re-admission, drain in place. Patient left AMA again this admission on 04/15/18. S/P Right knee arthrotomy with irrigation debridement 04/12/[address] Cohen Pain management per surgeon Discontinued IV abx Vanc and Cefepime. Continue Ancef IV antibiotic for an MSSA per infectious disease specialist Ortho consulted and ff ID specialist is consulted and is following for antibiotic regimen, ff. IVDU: Counselled. Ativan prn. Tobacco Abuse: Pt counselled. NicoDerm prn DVT Prophylaxis: Heparin sq CM consulted for d/c planning as needed Discussed with the patient, nurse Patient however left AMA again today 04/15/18 - Time Spent with Patient Total time spent providing and/or coordinating discharge services: Greater than 30 minutes - Quality: VTE Deep Vein Thrombosis/Pulmonary Embolism Present on Admission: No Exam Vital signs: Vital Signs 04/14/18 20:00 04/14/18 21:13 04/14/18 22:22 Temperature 99.5 F Pulse Rate 125 H Respiratory Rate 18 17 17 Blood Pressure 120/71 Pulse Oximetry 95 04/15/18 00:00 04/15/18 00:21 04/15/18 04:30 Temperature 99.3 F Pulse Rate 98 H Respiratory Rate 16 17 17 Blood Pressure 118/56 L Pulse Oximetry 98 04/15/18 05:03 04/15/18 08:00 04/15/18 11:49 Temperature 97.9 F 97.8 F Pulse Rate 100 H 138 H Respiratory Rate 18 18 19 Blood Pressure 106/62 121/79 Pulse Oximetry 99 95 Intake & Output 04/14/18 04/15/18 04/15/18 18:59 06:59 18:59 Intake Total 1825 / 1825 100 / 100 100 / 100 Output Total 500 / 500 10 / 10 Balance 1825 / 1825 -400 / -400 90 / 90 Intake: IV 1200 / 1200 100 / 100 100 / 100 NS Inj 1,000 ML @ 100 mls/hr IV 1000 / 1000 .CONT .Q10H [facility] Rx#:[id number] Ancef Inj 2,000 MG In NS Inj 80 200 / 200 100 / 100 100 / 100 ML @ 200 mls/hr IV.SIG Q8H STEFANIE Rx#:[id number] Oral 625 / 625 Output: Urine 500 / 500 Wound Drainage 0 / 0 10 Right Knee 0 / 0 Other: # Voids 6 Date of Last Bowel Movement 04/13/18 04/15/18 # Bowel Movements 0 Narrative: GENERAL: Young white female in no acute distress, resting comfortably. CARDIOVASCULAR: Regular rate and rhythm. No obvious murmurs to auscultation. No chest tenderness to palpation. RESPIRATORY: No obvious rhonchi or wheezing. Clear to auscultation. Breath sounds equal bilaterally. GASTROINTESTINAL: Abdomen soft, non-tender, nondistended. BS normal. MUSCULOSKELETAL: Extremities without clubbing, cyanosis, or edema. No obvious deformities. Right knee with quarter bleeding on the dressing, drain in place NEUROLOGICAL: Awake, alert and oriented x4. No focal neurologic deficits. Moving both upper and lower extremities spontaneously. PSYCHIATRIC: Appropriate mood and affect. Insight and judgment normal. Results Procedures completed during hospitalization: Right knee arthrotomy with irrigation debridement 04/12/[address] Cohen Labs on day of discharge: Preliminary micro results at discharge 04/14/18 10:59 Aerobic Blood Culture - Preliminary Blood - Peripheral No growth in 1 day Anaerobic Blood Culture - Preliminary No growth in 1 day 04/14/18 11:09 Aerobic Blood Culture - Preliminary Blood - Peripheral No growth in 1 day Anaerobic Blood Culture - Preliminary No growth in 1 day Discharge Plan - Discharge Disposition Patient Disposition: 07 Against Medical Advice - Discharge Condition Condition: Stable - Physicians Team Primary Care Provider: Primary Care Felicia Hansen Attending Provider: Lisa Chacko Other Providers: Joe Vaughan MD ; Cristal Rivera MD ; Jose Cohen MD
== END 2018-04-15 15:37 | disposition left against medical advice (07) ==
LOC: NEPD 11:48 → NEDA 18:35 → N07 21:10
PROVIDERS: ADMIT Hospitalist; ATTEND Hospitalist

== ENCOUNTER 2018-05-29 19:27 | Inpatient (IN) ==
[2018-05-29] MEDS ORDERED: Vancomycin Inj 1,000 MG in Sodium Chlor 0.9% Inj 250 ML IV.SIG ONE (20:51)
[2018-05-29] MEDS ORDERED: Piperacil/Tazo 3.375 GM Premix 50 ML IV.SIG ONE (20:51)
[2018-05-29 21:26] LABS: Baso % (Auto) 0.2 % (0.0-2.0); Eos # (Auto) 0.1 th/mm3 (0.0-0.4); Eos % (Auto) 0.9 % (0.0-4.0); Hemoglobin 11.9 gm/dL (11.6-15.3); Lymph # (Auto) 2.4 th/mm3 (1.0-4.8); Lymph % (Auto) 25.9 % (9.0-44.0); Mean Corpuscular HGB Conc 34.1 % (32.0-36.0); Mean Corpuscular Hemoglobin 28.8 pg (27.0-34.0); Mean Corpuscular Volume 84.4 fL (80.0-100.0); Mean Platelet Volume 7.5 fL (7.0-11.0); Mono # (Auto) 0.9 th/mm3 (0.0-0.9); Mono % (Auto) 9.4 % (0.0-8.0); Neut # (Auto) 5.8 th/mm3 (1.8-7.7); Neut % (Auto) 63.6 % (16.0-70.0); Platelet Count 276 th/mm3 (150-450); Red Blood Count 4.14 mil/mm3 (4.00-5.30); Red Cell Distribution Width 16.5 % (11.6-17.2); White Blood Count 9.2 th/mm3 (4.0-11.0)
--- NOTE | 2018-05-29 21:31 | US ---
EXAM DATE: 05/29/2018 9:15 PM EST AGE/SEX: 27 years / Female INDICATIONS: Right leg pain. CLINICAL DATA: This is the patient's initial encounter. Patient reports that signs and symptoms have been present for 1 week and indicates a pain score of 6/10. MEDICAL/SURGICAL HISTORY: Hepatitis C. Septic arthritis. . Hand surgery. Facial surgery. Knee surgery. COMPARISON: No prior exams available for comparison. TECHNIQUE: Venous ultrasound of both lower extremities was performed from the inguinal ligament to t he proximal calf. Real-time, color Doppler and spectral tracing, compression and augmentation techni ques were used. FINDINGS: Normal compression of the deep venous system from the inguinal region to the proximal calf . No echogenic clot is seen. Normal response of the venous system to augmentation and respiration. CONCLUSION: Negative study. No venous thrombosis of the right lower extremity. Electronically signed by: Lopez Ochoa MD 05/29/2018 9:30 PM EST
[2018-05-29 21:44] LABS: Albumin 4.1 g/dL (3.4-5.0); Anion Gap 9 meq/L (5-15); Aspartate Aminotransferase 22 U/L (15-37); Blood Urea Nitrogen 12 mg/dL (7-18); Calcium 8.7 mg/dL (8.5-10.1); Carbon Dioxide 23.2 meq/L (21.0-32.0); Chloride 101 meq/L (98-107); Glomerular Filtration Rate 69 mL/min (>89); Glucose,Random 114 mg/dL (74-106); Potassium 3.2 meq/L (3.5-5.1); Sodium 133 meq/L (136-145)
[2018-05-29 21:45] LABS: Alanine Aminotransferase 18 U/L (10-53)
--- NOTE | 2018-05-29 21:47 | ED ---
HPI General Chief Complaint: Extremity Injury, Lower Stated Complaint: Right foot pain Time Seen by Provider: 05/29/18 20:37 Source: patient and family Mode of arrival: ambulatory Limitations: no limitations History of Present Illness HPI Narrative: 27-year-old female that presents to the ED for evaluation of right leg infection. Per patient she has a history of infection to her knee. She was put on antibiotics and she is follow-up with Dr. Cohen outpatient. She was told to take p.o. antibiotics and per patient she stopped taking them about a week ago. Per patient she stopped them because she felt like her knee was better. Per patient since yesterday she has been noticing redness and swelling on the ankle and foot. Per patient she did not had this before. She does have a history of IV drug abuse. She states that she went to see a doctor yesterday and she was told to start the antibiotics again. She is been taking 2 days of Keflex and the infection seems to be worsening. She did marked the spots where she had an infection and it continues to spread. She denies any fevers but states having some chills and sweats. Per patient she also has some spots to her left leg as well. She denies any history of blood clots. Per patient her pain is 3 out of 10. Per patient she is concerned because the infection is not getting better. Of note per the medical records she was admitted x2 and left AMA x2. She states that the knee overall feels better but she is concerned because of the possible infection on the right lower leg. Related Data Home Medications Medication Instructions Recorded Confirmed cephalexin 500 mg PO TID 05/29/18 05/29/18 sulfamethoxazole-trimethoprim 1 tab PO QID 05/29/18 05/29/18 [Bactrim] Allergies Allergy/AdvReac Type Severity Reaction Status Date / Time No Known Allergies Allergy Verified 04/03/18 11:15 Review of Systems ROS: all other systems reviewed are negative [facility] Medical History Medical History Patient denies medical problems (Acute) H/O: facial fracture (Acute) Hepatitis C (Acute) Septic arthritis of knee, right (Acute) Surgical History Surgical History History of facial surgery (Acute) H/O hand surgery (Acute) History of knee surgery (Acute) Family History Family History Other Heart disease Social History Social History Substance History: Active Abuse Second Hand Smoke Exposure: No Smoking Status: Current every day smoker Tobacco Type: Cigarettes How Often Do You Have a Drink Containing Alcohol: Never Recent Travel in [facility] within the Last 8 Weeks: No Recent Out of Country Travel within the Last 8 Weeks: No Substance Abuse Detail Opiates: Substance Use Status: Active Route Used Substance Abuse: By Mouth Immunization History Tetanus Immunization: <5 Years Exam Narrative Exam Narrative: GENERAL: Well appearing. SKIN: Focused skin assessment warm/dry. HEAD: Atraumatic. Normocephalic. EYES: Pupils equal and round. No scleral icterus. No injection or drainage. ENT: No nasal bleeding or discharge. Mucous membranes pink and moist. Tongue is midline. No uvula deviation. NECK: Trachea midline. No JVD. CARDIOVASCULAR: Regular rate and rhythm. No murmur appreciated. RESPIRATORY: No accessory muscle use. Clear to auscultation. Breath sounds equal bilaterally. GASTROINTESTINAL: Abdomen soft, non-tender, nondistended. Hepatic and splenic margins not palpable. MUSCULOSKELETAL: No obvious deformities. No clubbing. No cyanosis. No edema. Full range of motion of the upper and lower extremities bilaterally. Patient has erythema and swelling on the right leg especially on the lateral aspect of the leg. Erythema is about almost 20 cm in length. 2+ pulses bilaterally. No obvious purulence or mass noted. Warm to the touch. NEUROLOGICAL: Awake and alert. No obvious cranial nerve deficits. Motor grossly within normal limits. Normal speech. PSYCHIATRIC: Appropriate mood and affect; insight and judgment normal. Course Initial Documented Vital Signs Temperature 99.2 F 05/29/18 19:41 Pulse Rate 119 H 05/29/18 19:41 Blood Pressure 130/87 05/29/18 19:41 Last Documented Vital Signs Temperature 99.2 F 05/29/18 19:41 Pulse Rate 119 H 05/29/18 19:41 Respiratory Rate 16 05/29/18 19:43 Blood Pressure 130/87 05/29/18 19:41 Pulse Oximetry 96 05/29/18 19:43 Medical Decision Making MDM Narrative Medical decision making narrative: 27-year-old female that presents to the ED for evaluation of right leg infection. Patient was properly examined and was found to have signs and symptoms consistent appears to be cellulitis. Patient appears to have failed outpatient treatment as patient has had 2 days of antibiotics. Labs and imaging were ordered. I did review the patient's medical records and she does have a significant history of IV drug abuse with septic arthritis of the right knee. It appears that her cultures showed the patient could take Bactrim and Keflex and she was put on this. She apparently has been taking about 3 weeks of this but she herself stopped her medications about a week ago. Patient has been taken 2 days of Keflex. This infection appears to be in a different area and she denies having this before. She denies IV drug recently. Labs and imaging were ordered and showed elevated CRP. At this time because patient has been taking antibiotics at the recommend admission for further evaluation and treatment. Patient agreed to be admitted overnight. Has discussed with Dr. Parks who agrees with this. Medical Screen Exam Complete: Yes Emergency Medical Condition: Yes Differential Diagnosis Differential Diagnosis: Cellulitis versus sepsis versus failed outpatient treatment Medical Records Medical records reviewed: Yes I reviewed the patient's medical records. Lab Data Lab results reviewed: Yes I reviewed the patient's lab results. Result diagrams: 05/29/18 21:06 05/29/18 21:06 Lab Results 05/29/18 05/29/18 05/29/18 Range/Units 21:06 21:06 21:06 WBC 9.2 (4.0-11.0) th/mm3 RBC 4.14 (4.00-5.30) mil/mm3 Hgb 11.9 (11.6-15.3) gm/dL Hct 35.0 (35.0-46.0) % MCV 84.4 (80.0-100.0) fL MCH 28.8 (27.0-34.0) pg MCHC 34.1 (32.0-36.0) % RDW 16.5 (11.6-17.2) % Plt Count 276 (150-450) th/mm3 MPV 7.5 (7.0-11.0) fL Neut % (Auto) 63.6 (16.0-70.0) % Lymph % (Auto) 25.9 (9.0-44.0) % [place] % (Auto) 9.4 H (0.0-8.0) % Eos % (Auto) 0.9 (0.0-4.0) % Baso % (Auto) 0.2 (0.0-2.0) % Neut # (Auto) 5.8 (1.8-7.7) th/mm3 Lymph # (Auto) 2.4 (1.0-4.8) th/mm3 [place] # (Auto) 0.9 (0.0-0.9) th/mm3 Eos # (Auto) 0.1 (0.0-0.4) th/mm3 Baso # (Auto) 0.0 (0.0-0.2) th/mm3 WBC Differential . Differential Comment Auto diff final Sodium 133 L (136-145) meq/L Potassium 3.2 L (3.5-5.1) meq/L Chloride 101 (98-107) meq/L Carbon Dioxide 23.2 (21.0-32.0) meq/L Anion Gap 9 (5-15) meq/L BUN 12 (7-18) mg/dL Creatinine 0.98 (0.50-1.00) mg/dL Estimated GFR 69 L (>89) mL/min Random Glucose 114 H (74-106) mg/dL Lactic Acid 0.8 (0.4-2.0) mmol/L Calcium 8.7 (8.5-10.1) mg/dL Magnesium 2.0 (1.5-2.5) mg/dL Total Bilirubin 0.5 (0.2-1.0) mg/dL AST 22 (15-37) U/L ALT 18 (10-53) U/L Alkaline Phosphatase 100 (45-117) U/L C-Reactive Protein 18.00 H (0.00-0.30) mg/dL Total Protein 8.8 H (6.4-8.2) g/dL Albumin 4.1 (3.4-5.0) g/dL Imaging Data Attestation: I personally reviewed and interpreted this imaging study as follows : Radiologist's impression: Venous Doppler Study 05/29/18 20:51 CONCLUSION: Negative study. No venous thrombosis of the right lower extremity. Discharge Plan Discharge Disposition Patient Disposition: 30 Still Patient Discharge Details Diagnosis: Cellulitis Physicians Team ED Provider: Loki Maxwell ED Midlevel Provider: Darrell Garcia Primary Care Provider: Primary Care Felicia Hansen Attending Provider: Sonali Parks Discharge Interventions Interventions: Vital Signs Last Done: 05/29/18 19:43 Status ED Status: Admitted Observation Patient
[2018-05-29 21:52] LABS: Alkaline Phosphatase 100 U/L (45-117); Total Protein 8.8 g/dL (6.4-8.2)
[2018-05-29] MEDS ORDERED: Vancomycin Consult Pharmacy OTHER PRN (22:09)
[2018-05-29] MEDS ORDERED: Bisacodyl 10 MG Supp RECTAL PRN (22:11)
[2018-05-29] MEDS ORDERED: Acetaminophen 325 MG Tablet PO PRN (22:11)
--- NOTE | 2018-05-29 22:16 | P.HPIM ---
History of Present Illness Primary Care Physician: No Primary Care Physician History of Present Illness: This is a 27-year-old female with a PMH of Hepatitis C, IVDU, Right Knee Septic Joint and Tobacco Abuse who presented to the ER w/ right foot infection. Previous admit 04/03/18 for Septic Joint s/p I&D w/ drain by Dr. Cohen, LEFT AMA , re-admitted 04/09/18 for ongoing knee infection s/p I&D 04/12/[address] Cohen, also LEFT AMA. States she had been taking antibiotics for knee infection x3 wks w/ improvement, stopped 1wk ago. Now w/ c/o right foot redness/swelling, has been on Keflex x2 days w/ no improvement. Denies fever, chills. +ongoing IVDU. Pt already talking about LEAVING AMA again, but has decided to stay at this point. On arrival, BP 130/87, HR 190 O2 sat 96% on RA, Temp 99.2. CBC unremarkable. Chemistry essentially unremarkable except for mild hypokalemia. CRP 18. Doppler negative for DVT. S/p Vanc/Zosyn in ER. - Diagnosis (1) Cellulitis (2) Failure of outpatient treatment (3) IVDU (intravenous drug user) (4) Tobacco abuse Review of Systems PAST FAMILY HISTORY: Reviewed. No h/o DM or CAD All other systems reviewed negative except as stated in HPI PMFSH - History History Provided By: Patient - Medical History Medical History: Medical History (Last Reviewed 05/29/18 @ 21:44 by MARISOL Lainez) Patient denies medical problems (Acute) H/O: facial fracture Hepatitis C Septic arthritis of knee, right - Surgical History Surgical History: Surgical History (Last Reviewed 05/29/18 @ 21:44 by MARISOL Lainez) History of facial surgery (Acute) H/O hand surgery History of knee surgery - Family History Family History: Family History (Last Reviewed 05/29/18 @ 21:44 by MARISOL Lainez) Other Heart disease - Tobacco History Second Hand Smoke Exposure: No Tobacco Use In Past 30 Days: Yes Smoking Status: Current every day smoker Tobacco Type: Cigarettes - Alcohol History How Often Do You Have a Drink Containing Alcohol: Never - Substance Use History Substance History: Active Abuse - Substance Use Type Opiates Status: Active Route Used: By Mouth - Travel History Recent Travel in the [place] Within the Last 8 Weeks: No Recent Travel Out of the Country Within the Last 8 Weeks: No - Immunization History Tetanus Immunization: <5 Years Medications and Allergies Active Medications: Active Medications Acetaminophen (Tylenol) 650 mg PO Q4H PRN PRN Reason: Temp > 100.4 Al Hydroxide/Mg Hydroxide (Milk Of Magnesia Liq) 30 ml PO Q12H PRN PRN Reason: Mild Constipation Bisacodyl (Dulcolax Supp) 10 mg RECTAL DAILY PRN PRN Reason: SEVERE CONSITIPATION Sodium Chloride (Ns Inj) 1,000 mls @ 100 mls/hr IV.CONT .Q10H STEFANIE Cefepime HCl 1,000 mg/ Sodium (Chloride) 100 mls @ 200 mls/hr IV.SIG Q12H STEFANIE Lactulose (Lactulose Liq) 30 ml PO DAILY PRN PRN Reason: SEVERE CONSITIPATION Lorazepam (Ativan Inj) 1 mg IV.PUSH Q2H PRN PRN Reason: AGITATION/WITHDRAWAL Ondansetron HCl (Zofran Inj) 4 mg IV.PUSH Q6H PRN PRN Reason: NAUSEA OR VOMITING Oxycodone HCl (Roxicodone) 10 mg PO Q4H PRN PRN Reason: PAIN 6-10 Oxycodone HCl (Roxicodone) 5 mg PO Q4H PRN PRN Reason: PAIN 3-5 Pharmacy Profile Note (Vancomycin Consult Pharmacy) 1 each OTHER UNSCH PRN PRN Reason: Pharmacy to dose Senna/Docusate Sodium (Anabel-Colace) 1 tab PO BID STEFANIE Sennosides (Senokot) 17.2 mg PO Q12H PRN PRN Reason: Moderate Constipation Allergies Allergy/AdvReac Type Severity Reaction Status Date / Time No Known Allergies Allergy Verified 04/03/18 11:15 Home Medications Medication Instructions Recorded Confirmed Type cephalexin 500 mg PO TID 05/29/18 05/29/18 History sulfamethoxazole-trimethoprim 1 tab PO QID 05/29/18 05/29/18 History [Bactrim] Exam Vital signs: Vital Signs 05/29/18 19:41 05/29/18 19:43 Temperature 99.2 F Pulse Rate 119 H Respiratory Rate 16 Blood Pressure 130/87 Pulse Oximetry 96 Intake & Output 05/29/18 05/29/18 05/30/18 06:59 18:59 06:59 Intake Total 50 / 50 Balance 50 / 50 Weight 72 kg Intake: IV 50 / 50 Zosyn 3.375 GM Premix 50 ML @ 50 / 50 100 mls/hr IV.SIG ONCE ONE Rx#: [id number] Narrative: PE: GENERAL: Young white female in no acute distress. SKIN: Focused skin assessment warm and dry. HEENT: PERRLA, EOMI. No scleral icterus or conjunctival pallor. No lid lag or facial droop. CARDIOVASCULAR: Regular rate and rhythm. No obvious murmurs to auscultation. No chest tenderness to palpation. RESPIRATORY: No obvious rhonchi or wheezing. Clear to auscultation. Breath sounds equal bilaterally. GASTROINTESTINAL: Abdomen soft, non-tender, nondistended. BS normal. MUSCULOSKELETAL: Extremities without clubbing, cyanosis, or edema. No obvious deformities. RLE erythema/edema, pulses intact NEUROLOGICAL: Awake, alert and oriented x4. No focal neurologic deficits. Moving both upper and lower extremities spontaneously. PSYCHIATRIC: Appropriate mood and affect. Insight and judgment normal. Results - Labs CBC & Chem 7: 05/29/18 21:06 05/29/18 21:06 Labs: Short CBC 05/29/18 Range/Units 21:06 WBC 9.2 (4.0-11.0) th/mm3 Hgb 11.9 (11.6-15.3) gm/dL Hct 35.0 (35.0-46.0) % Plt Count 276 (150-450) th/mm3 BMP 05/29/18 21:06 Sodium 133 L Potassium 3.2 L Chloride 101 Carbon Dioxide 23.2 BUN 12 Creatinine 0.98 Calcium 8.7 Liver Function 05/29/18 Range/Units 21:06 Total Bilirubin 0.5 (0.2-1.0) mg/dL AST 22 (15-37) U/L ALT 18 (10-53) U/L Alkaline Phosphatase 100 (45-117) U/L Albumin 4.1 (3.4-5.0) g/dL - Imaging Impressions Venous Doppler Study 05/29/18 20:51 CONCLUSION: Negative study. No venous thrombosis of the right lower extremity. Caprini VTE Risk Assessment Caprini VTE Risk Assessment: No/Low Risk (score <= 1) VTE Mechanical Exception: LE injury/wound Caprini Risk Assessment Model: Point Value = 1 Point Value = 2 Point Value = 3 Point Value = 5 Age 41-60 Minor surgery BMI > 25 kg/m2 Swollen legs Varicose veins or History of unexplained or recurrent spontaneous Oral contraceptives or hormone replacement Sepsis (< 1 month) Serious lung disease, including pneumonia (< 1 month) Abnormal pulmonary function Acute myocardial infarction Congestive heart failure (< 1 month) History of inflammatory bowel disease Medical patient at bed rest Age 61-74 Arthroscopic surgery Major open surgery (> 45 min) Laparoscopic surgery (> 45 min) Malignancy Confined to bed (> 72 hours) Immobilizing plaster cast Central venous access Age >= 75 History of VTE Family history of VTE Factor V Leiden Prothrombin [id number] Lupus anticoagulant Anticardiolipin antibodies Elevated serum homocysteine Heparin-induced thrombocytopenia Other congenital or acquired thrombophilia Stroke (< 1 month) Elective arthroplasty Hip, pelvis, or leg fracture Acute spinal cord injury (< 1 month) Prophylaxis Regimen: Total Risk Factor Score Risk Level Prophylaxis Regimen 0-1 Low Early ambulation 2 Moderate Order ONE of the following: *Sequential Compression Device (SCD) *Heparin 5000 units SQ BID 3-4 Higher Order ONE of the following medications: *Heparin 5000 units SQ TID *Enoxaparin/Lovenox 40 mg SQ daily (WT < 150 kg, CrCl > 30 mL/min) *Enoxaparin/Lovenox 30 mg SQ daily (WT < 150 kg, CrCl > 10-29 mL/min) *Enoxaparin/Lovenox 30 mg SQ BID (WT < 150 kg, CrCl > 30 mL/min) AND/OR *Sequential Compression Device (SCD) 5 or more Highest Order ONE of the following medications: *Heparin 5000 units SQ TID (Preferred with Epidurals) *Enoxaparin/Lovenox 40 mg SQ daily (WT < 150 kg, CrCl > 30 mL/min) *Enoxaparin/Lovenox 30 mg SQ daily (WT < 150 kg, CrCl > 10-29 mL/min) *Enoxaparin/Lovenox 30 mg SQ BID (WT < 150 kg, CrCl > 30 mL/min) AND *Sequential Compression Device (SCD) Assessment and Plan - Assessment (1) Cellulitis Code(s): L03.90 - Cellulitis, unspecified Status: Acute (2) Failure of outpatient treatment Code(s): Z78.9 - Other specified health status Status: Acute (3) IVDU (intravenous drug user) Code(s): F19.90 - Other psychoactive substance use, unspecified, uncomplicated Status: Acute (4) Tobacco abuse Code(s): Z72.0 - Tobacco use Status: Acute - Plan A/P: 1. Cellulitis: RLE. Doppler negative for DVT, Afebrile, no leukocytosis. CRP 18. S/p Vanc/Zosyn in ER, will continue w/ IV Abx, follow up blood cultures. H/o Right knee septic joint, s/p I&D x2, LEFT AMA x2, pt already talking about LEAVING AMA again, however states she will stay for right now. 2. Failed Outpatient Tx: on Keflex x2 days for right foot infection w/ no improvement, continue IV Abx as above. 3. IVDU: Ativan prn for withdrawal 4. Tobacco Abuse: NicoDerm prn 5. DVT Prophylaxis: Mechanical contraindication due to cellulitis 6. Social work for d/c planning as needed 7. Case discussed w/ ER physician at length, labs/records/imaging reviewed by me. (1) Cellulitis Qualifiers: Site of cellulitis: extremity Site of cellulitis of extremity: lower extremity Laterality: right Qualified Code(s): L03.115 - Cellulitis of right lower limb
[2018-05-29] MEDS: Sod Chloride 0.9% Inj 1,000 ML IV.CONT SCH (22:36)
[2018-05-30] MEDS ORDERED: Vancomycin Inj 750 MG in Sodium Chlor 0.9% Inj 250 ML IV.SIG ONE ×2
[2018-05-30 03:39] VITALS: RESP 20
[2018-05-30 06:20] LABS: Baso % (Auto) 0.3 % (0.0-2.0); Eos # (Auto) 0.1 th/mm3 (0.0-0.4); Eos % (Auto) 1.8 % (0.0-4.0); Hematocrit 31.5 % (35.0-46.0); Hemoglobin 10.7 gm/dL (11.6-15.3); Lymph % (Auto) 32.6 % (9.0-44.0); Mean Corpuscular Hemoglobin 28.9 pg (27.0-34.0); Mean Platelet Volume 7.6 fL (7.0-11.0); Mono # (Auto) 0.7 th/mm3 (0.0-0.9); Mono % (Auto) 11.2 % (0.0-8.0); Neut # (Auto) 3.3 th/mm3 (1.8-7.7); Neut % (Auto) 54.1 % (16.0-70.0); Platelet Count 256 th/mm3 (150-450); Red Blood Count 3.71 mil/mm3 (4.00-5.30); Red Cell Distribution Width 16.6 % (11.6-17.2)
[2018-05-30 06:45] LABS: Albumin 3.5 g/dL (3.4-5.0); Anion Gap 8 meq/L (5-15); Aspartate Aminotransferase 17 U/L (15-37); Blood Urea Nitrogen 8 mg/dL (7-18); Calcium 8.1 mg/dL (8.5-10.1); Chloride 106 meq/L (98-107); Glomerular Filtration Rate 87 mL/min (>89); Glucose,Random 90 mg/dL (74-106); Potassium 3.6 meq/L (3.5-5.1); Sodium 138 meq/L (136-145)
[2018-05-30 06:46] LABS: Alanine Aminotransferase 15 U/L (10-53)
[2018-05-30 06:49] LABS: Alkaline Phosphatase 87 U/L (45-117); Total Protein 7.4 g/dL (6.4-8.2)
[2018-05-30 08:31] VITALS: BP 107/58; PULSE 86; TEMP 98.6; O2SAT 98
[2018-05-30] MEDS ORDERED: Senna/Docusate Sodium 8.6/50 MG Tablet PO SCH (09:00)
[2018-05-30] MEDS ORDERED: Ibuprofen 600 MG Tablet PO PRN (09:23)
--- NOTE | 2018-05-30 09:55 | P.PNIM ---
Subjective Interval history: The patient is leaving [place] despite my discussion with her about staying. She states her leg looks better and she has a daughter at home. Physical Exam Vital signs: Vital Signs 05/29/18 19:41 05/29/18 19:43 05/30/18 00:00 Temperature 99.2 F 98.2 F Pulse Rate 119 H 97 H Respiratory Rate 16 18 Blood Pressure 130/87 126/90 Pulse Oximetry 96 98 05/30/18 03:38 05/30/18 08:00 Temperature 98.4 F 98.6 F Pulse Rate 104 H 86 Respiratory Rate 20 20 Blood Pressure 145/84 H 107/58 L Pulse Oximetry 983 H 98 Intake & Output 05/29/18 05/30/18 05/30/18 18:59 06:59 18:59 Intake Total 815 / 815 Balance 815 / 815 Weight 72 kg Intake: IV 815 / 815 Zosyn 3.375 GM Premix 50 ML @ 50 / 50 100 mls/hr IV.SIG ONCE ONE Rx#: [id number] Vancomycin Inj 1,000 MG In NS 500 / 500 Inj 250 ML @ 250 mls/hr IV.SIG ONCE ONE Rx#:[id number] Vancomycin Inj 750 MG In NS Inj 265 / 265 250 ML @ 265 mls/hr IV.SIG ONCE ONE Rx#:[id number] Other: # Voids 1 Date of Last Bowel Movement 05/29/18 Weight On Admission 72 kg Narrative: GENERAL: Patient appears older than stated age. MUSCULOSKELETAL: Right lower extremity erythema. Per patient it is improved. Limited exam as the patient is in a hurry to leave the hospital. Results - Labs CBC & Chem 7: 05/30/18 05:23 05/30/18 05:23 Laboratory Results - last 24 hr 05/29/18 05/29/18 05/29/18 21:06 21:06 21:06 WBC 9.2 RBC 4.14 Hgb 11.9 Hct 35.0 MCV 84.4 MCH 28.8 MCHC 34.1 RDW 16.5 Plt Count 276 MPV 7.5 Neut % (Auto) 63.6 Lymph % (Auto) 25.9 [place] % (Auto) 9.4 H Eos % (Auto) 0.9 Baso % (Auto) 0.2 Neut # (Auto) 5.8 Lymph # (Auto) 2.4 [place] # (Auto) 0.9 Eos # (Auto) 0.1 Baso # (Auto) 0.0 WBC Differential . Differential Comment Auto diff final Sodium 133 L Potassium 3.2 L Chloride 101 Carbon Dioxide 23.2 Anion Gap 9 BUN 12 Creatinine 0.98 Estimated GFR 69 L Random Glucose 114 H Lactic Acid 0.8 Calcium 8.7 Magnesium 2.0 Total Bilirubin 0.5 AST 22 ALT 18 Alkaline Phosphatase 100 C-Reactive Protein 18.00 H Total Protein 8.8 H Albumin 4.1 05/30/18 05/30/18 05:23 05:23 WBC 6.0 RBC 3.71 L Hgb 10.7 L Hct 31.5 L MCV 85.0 MCH 28.9 MCHC 34.0 RDW 16.6 Plt Count 256 MPV 7.6 Neut % (Auto) 54.1 Lymph % (Auto) 32.6 [place] % (Auto) 11.2 H Eos % (Auto) 1.8 Baso % (Auto) 0.3 Neut # (Auto) 3.3 Lymph # (Auto) 2.0 [place] # (Auto) 0.7 Eos # (Auto) 0.1 Baso # (Auto) 0.0 WBC Differential . Differential Comment Auto diff final Sodium 138 Potassium 3.6 Chloride 106 Carbon Dioxide 24.0 Anion Gap 8 BUN 8 Creatinine 0.80 Estimated GFR 87 L Random Glucose 90 Lactic Acid Calcium 8.1 L Magnesium Total Bilirubin 0.6 AST 17 ALT 15 Alkaline Phosphatase 87 C-Reactive Protein Total Protein 7.4 D Albumin 3.5 D - Imaging Impressions Venous Doppler Study 05/29/18 20:51 CONCLUSION: Negative study. No venous thrombosis of the right lower extremity. Assessment and Plan - Assessment (1) Cellulitis Code(s): L03.90 - Cellulitis, unspecified Status: Acute (2) Failure of outpatient treatment Code(s): Z78.9 - Other specified health status Status: Acute (3) IVDU (intravenous drug user) Code(s): F19.90 - Other psychoactive substance use, unspecified, uncomplicated Status: Acute (4) Tobacco abuse Code(s): Z72.0 - Tobacco use Status: Acute - Plan 27-year-old female active IV drug user with history of right septic knee joint status post I&D x2 and left the hospital AMA x2 presented with cellulitis of the right lower extremity. Cellulitis: RLE. Doppler negative for DVT, Afebrile, no leukocytosis. CRP 18. S/p Vanc/Zosyn in ER, will continue w/ IV Abx, follow up blood cultures. - Unfortunately the patient is leaving the hospital AGAINST MEDICAL ADVICE. She was advised of the risk of worsening infection. She understands she has blood cultures pending. Patient given a script for a course of Levaquin. Potential side effects discussed. Patient Left AMA in a hurry. (1) Cellulitis Qualifiers: Site of cellulitis: extremity Site of cellulitis of extremity: lower extremity Laterality: right Qualified Code(s): L03.115 - Cellulitis of right lower limb
[2018-05-30] MEDS: Sod Chloride 0.9% Inj 1,000 ML IV.CONT SCH (11:05)
[2018-05-30] MEDS ORDERED: Vancomycin Inj 1,000 MG in Sodium Chlor 0.9% Inj 250 ML IV.SIG SCH (12:00)
[2018-05-31] MEDS ORDERED: Pharmacy Ordered Lab Info OTHER ONE (11:45)
== END 2018-05-30 10:36 | disposition left against medical advice (07) ==
LOC: NEDA 19:27 → NEPE 19:27 → OBSVTOIN 22:36 → NEDA 23:22 → NEPFCDU 23:41
PROVIDERS: ADMIT Family Medicine; ATTEND Family Medicine